=== PATIENT | female | born 1945 | race Caucasian/White ===

== ENCOUNTER → 2017-10-27 08:42 | Outpatient (CLI) | payer MEDICARE, SELFPAY ==
--- NOTE | 2017-10-27 08:54 | RAD_ITS ---
STUDY: X-RAY - RIGHT KNEE REASON FOR EXAM: Female, 71 years old. Pain. TECHNIQUE: 4 view(s) of the knee. COMPARISON: None. FINDINGS: Normal visualized distal femur. Normal visualized proximal tibia and fibula. Normal proximal tibiofibular articulation. Normal medial femorotibial compartment. Normal lateral femorotibial compartment. Normal patellofemoral articulation. The soft tissue structures are unremarkable. RAD/Knee 4 or More Views IMPRESSION: Normal x-ray examination of the knee. Electronically Signed: Ramses Heredia MD at 13:42 EDT Tel [phone], Service support ,
== END ==
PROVIDERS: Family Provider Family Medicine; PCP Family Medicine; Visit Provider Physician Assistant
DX: M25.561 Pain in right knee (principal)
CPT/HCPCS: 73564

== ENCOUNTER → 2018-05-05 07:47 | Outpatient (CLI) | payer MEDICARE, SELFPAY ==
[2018-05-05 10:32] LABS: Anion Gap 8 (5-15); BUN 12 mg/dL (7-18); Chloride 105 mmol/L (98-107); Cholesterol 276 mg/dL (200); Creatinine, Serum 0.92 mg/dL (0.55-1.02); EST Glomerular Filtration Rate 64 mL/min (>60); Est Glom Filt Rate - Afr Amer 77 mL/min (>60); Glucose 85 mg/dL (74-106); High Density Lipoprotein 81 mg/dL; Potassium 3.9 mmol/L (3.5-5.1); Sodium Level 142 mmol/L (136-145); Triglycerides 102 mg/dL; Very Low Density Lipoprotein 20 mg/dL (5-40)
== END ==
PROVIDERS: Family Provider Family Medicine; PCP Family Medicine; Referring Provider Family Medicine; Visit Provider Family Medicine
DX: I10 Essential (primary) hypertension (principal); E78.00 Pure hypercholesterolemia, unspecified
CPT/HCPCS: 36415; 80048; 80061

== ENCOUNTER → 2018-08-25 12:32 | Outpatient (CLI) | payer MEDICARE, OTHER, SELFPAY ==
--- NOTE | 2018-08-25 12:37 | BI_ITS ---
MAMMOGRAPHY - BILATERAL SCREENING REASON FOR EXAM: Female, 72 years old. Routine annual screening examination. PERTINENT HISTORY: Non-contributory. TECHNIQUE: Digital bilateral breast lexi (3D mammographic acquisition) in the CC and MLO projections. 2-D mediolateral oblique (MLO) and craniocaudad (CC) views of both breasts were obtained. CAD: Full Field Digital Mammography with Computer Added Detection was performed. COMPARISON: Comparison is made with prior study dated June 12, 2017 and May 19, 2016. FINDINGS: Breast Composition: There are scattered areas of fibroglandular density. There are no dominant masses or suspicious calcifications. No other significant abnormalities are identified. There has been no significant change since the prior study. BI/SCREENING MAMM (CAD), BILAT IMPRESSION: Stable bilateral screening mammogram. Yearly follow-up mammogram recommended. (A) ASSESSMENT CATEGORY: BIRADS Category 1: Negative. A letter regarding these results will be sent to the patient by the facility within 30 days. Approximately 10% of breast cancers are not detected by mammography. A normal mammogram should not delay biopsy of a clinically suspicious abnormality. [id number] Electronically Signed: Ramses Heredia, at 14:32 EDT , Service support ,
== END ==
PROVIDERS: Family Provider Family Medicine; PCP Family Medicine; Referring Provider Obstetrics & Gynecology; Visit Provider Obstetrics & Gynecology
DX: Z12.31 Encounter for screening mammogram for malignant neoplasm of breast (principal)
CPT/HCPCS: 77063; 77067

== ENCOUNTER → 2018-09-17 12:27 | Outpatient (CLI) | payer MEDICARE, OTHER, SELFPAY ==
--- NOTE | 2018-09-17 12:30 | MRI_ITS ---
STUDY: MRI RIGHT KNEE REASON FOR EXAM: Female, 72 years old. Right knee pain. Injury. Swelling. TECHNIQUE: Standardized fat and water weighted pulse sequences were obtained in all 3 orthogonal planes. COMPARISON: X-ray dated October 27, 2017. FINDINGS: Grade 2/3 cartilage loss of the patellofemoral articulation. Grade 4 cartilage loss of the lateral compartment. Grade 2/3 cartilage loss at the medial compartment predominating at the weightbearing portion. No acute fracture lines. No dislocation. No cortical destruction. Lateral meniscus bucket-handle type tear with displaced fragment at the intercondylar notch (sagittal images 5 through 8 series 4, coronal image 12 series 6 and axial image 17 series 2). Lateral meniscal degeneration with free edge fraying (sagittal image 15 series 4). Small volume joint effusion. Collapsed popliteal cyst. Mild pes anserinus bursitis. Mild soft tissue swelling. Normal medial collateral ligamentous complex (MCL). Normal distal semimembranosus, gracilis and semitendinosus tendons. Normal proximal tibiofibular articulation. Normal lateral collateral (fibular) ligament. Normal popliteus tendon. Normal biceps femoris tendon. Normal anterior cruciate ligament (ACL). Normal posterior cruciate ligament (PCL). Normal medial and lateral patellar retinaculum. Normal quadriceps tendon. Normal patellar tendon. Normal Hoffa's fat pad. MRI/Lower Ext Joint Only (Routine) IMPRESSION: Lateral meniscus bucket-handle tear with displaced intercondylar notch fragment Right knee tricompartmental osteoarthritis predominating laterally Mild pes anserinus bursitis Small joint effusion, collapsed popliteal cyst and mild soft tissue swelling Electronically Signed: Lambert Palafox DO at 21:50 EDT Tel , Service support ,
== END ==
PROVIDERS: Family Provider Family Medicine; PCP Family Medicine; Referring Provider Orthopaedic Surgery; Visit Provider Orthopaedic Surgery
DX: M25.561 Pain in right knee (principal); G89.29 Other chronic pain; M23.306 Other meniscus derangements, unspecified meniscus, right knee
CPT/HCPCS: 73721

== ENCOUNTER 2018-10-20 06:00 | Day surgery (SDC) | payer MEDICARE, OTHER, SELFPAY ==
--- NOTE | 2018-09-28 12:13 | HP_ITS ---
Intake Intake Visit Reasons: RIGHT KNEE Medications bisoprolol 5 mg-hydrochlorothiazide 6.25 mg tablet 1 tab PO ONCE tab 10/27/17 [History Confirmed 10/27/17] diclofenac sodium 75 mg tablet,delayed release 75 mg PO BID 10/27/17 [History Confirmed 10/27/17] levothyroxine 112 mcg tablet 112 mcg PO ONCE tab 10/27/17 [History Confirmed 10/27/17] PFSH Medical History Lee's disease (Chronic) Hypertension (Chronic) HPI RIGHT KNEE: Surgical H&P: Yes Details: Parts of this documentation were recorded by a scribe, this documentation accurately reflects the service provided and the decisions made by me, Any Bee, DO 09/21/18 3769. YUE MARIE is a 72 year old F here today for MRI f/u of the right knee. She continues to have knee pain with catching and locking. Denies numbness, tingling or other associated symptoms. No new complaints. pain 6/10 and worse with flexion. not taking narcotics for pain. denies constitutional symptoms. pain defined as sharp and locking at times and dull ache others. ROS Const Reports system reviewed and no additional complaints, except as docu Eyes Reports system reviewed and no additional complaints, except as docu ENT Reports system reviewed and no additional complaints, except as docu Card Reports system reviewed and no additional complaints, except as docu Resp Reports system reviewed and no additional complaints, except as docu GI Reports system reviewed and no additional complaints, except as docu Reports system reviewed and no additional complaints, except as docu Musc Reports as per HPI Skin/Breast Reports system reviewed and no additional complaints, except as docu Neuro Yes system reviewed and no additional complaints, except as docu Psych Reports system reviewed and no additional complaints, except as docu Endo Reports system reviewed and no additional complaints, except as docu Ortho Exam Right Knee Knee ROM: Yes ROM-Extension -20 to 0, Yes ROM-Flexion 0-140 Examination: Yes Lat jt line tenderness, Yes Pain with flexion Assessment & Plan Problems 1. Bucket-handle tear of lateral meniscus of right knee as current injury, subsequent encounter S83.580D Plan Personally reviewed the MRI and explained that she has a bucket handle lateral meniscus tear. Explained that surgery to removed the piece that is causing the locking will likely remove the sharp pain and catching, she does also have OA and the surgery may not aid in OA pain. Reviewed the pre-operative plans with the patient. Risks and benefits of the procedure were fully explained, including but not limited to infection, neurovascular injury, continued pain, arthritis, stiffness, need for further surgery, re-injury, DVT, PE, general risks of anesthesia, and loss of limb or life. The patient understands all the risks and does wish to proceed with written consent. Follow up two weeks post op or sooner if pain, swelling, numbness or associated symptoms, or concerns develop. All questions answered. Patient in agreement of plan. Coding Level of Care Code Off vis,est,level 4 Diagnoses Bucket-handle tear of lateral meniscus of right knee as current injury, subsequent encounter S83.251D ??Encounter type: subsequent encounter ??Meniscus of knee: lateral ??Tear current or old: current 09/28/18 1213 <Electronically signed by Any Bee DO> Date Any Bee DO I have re-examined the patient. There are no clinical changes since date of exam.
[2018-10-20] VITALS (8 sets, daily range): BP systolic 133–150; BP diastolic 67–79; PULSE 61–79; RESP 16–20; TEMP 36.5–36.6; O2SAT 93–100; BMI 25.4
[2018-10-20] MEDS: Cefazolin 2 GM in 0.9% Normal Saline 100 ML IV (07:23)
[2018-10-20] MEDS: Epinephrine (1 mg/ml) 1 MG/ML VIAL (07:40)
[2018-10-20] MEDS: Mupirocin Ointment 22gm Tube 1 APPLIC (08:30)
--- NOTE | 2018-10-20 08:36 | DCINST_ITS ---
Discharge Diet: No Restrictions - wbat right leg; elevate, ice and ankle pumps as discussed, follow up in 2 weeks with casey masterson, or sooner if issues arise, call with calf pain, fever, chills or other constitutional symptoms. Discharge Activity: May Not Drive May shower in (days): 1 Ice area for (Minutes): 20 - Every hour while awake. Weight Bearing Status: Weight bearing as tolerated Keep extremity elevated above heart level: Operative Extremity Call your doctor if your incision/area has: Continuous Slow Oozing, Sudden Increased Bleeding, Increased Pain/ Swelling, Increased Redness, Foul Smelling Discharge Call your doctor if you observe: Fever of 101 or Higher, Coldness, Increased Pain, Numbness or Tingling, Change in Color, Calf discomfort Allergies/Adverse Reactions: Allergies Sulfa (Sulfonamide Antibiotics) Allergy (Verified 10/13/18 10:03) Other SKIN ON FIRE BAND AID Allergy (Uncoded 10/13/18 10:04) Itching Medications to take at Discharge bisoprolol 5 mg-hydrochlorothiazide 6.25 mg tablet 1 tab PO ONCE tab 10/27/17 levothyroxine 112 mcg tablet 112 mcg PO ONCE tab 10/27/17 Calcium Citrate/Vitamin D3 [Citracal-Vit D3 200 mg-250 Tab] 2 each PO BID 10/13/18 traMADol [Ultram] 50 mg PO Q6H PRN PRN #30 tablet 10/20/18 The following prescriptions were given: traMADol [Ultram] 50 mg PO Q6H PRN PRN #30 tablet PRN Reason: Pain Primary Care Physician: Varghese Lowry MD [Primary Care Provider] - Test Results: Test results from this visit will be discussed in further detail at your follow- up appointment, if applicable. Please Follow Up With: Any Bee, - [phone]
--- NOTE | 2018-10-20 08:37 | PCM.OPRPT ---
Report of Operation Date of Procedure: 10/20/18 Pre-Operative Diagnosis: right knee lateral meniscus tear, osteoarthritis Post-Operative Diagnosis: same Surgery/Procedure Performed:: sark, plm, extensive synovectomy, pf chondropasty Type of Anesthesia:: General Anesthesiologist: Gregory Spears Estimated Blood Loss (mL): none Fluids Replaced: 600ml lr Description of Procedure: Preop note Patient is a 72-year-old female who is had locking of her right knee which is preventing her from doing her activities of daily living. Patient failed conservative treatment MRI confirms lateral meniscus tear as well as our osteoarthritis. Wrist benefits alternatives surgery discussed with patient. Risks include but not limited to blood loss, blood clot, infection, neurovascular, failure procedure,. Patient is aware would like proceed with right knee arthroscopy repair is indicated. Operative note Patient seen and examined preoperative holding area. Right knee was marked. Patient brought to the operating placed supine the operating table. Signing, anesthesia, antibiotics are Mr. The left right leg was prepped and draped in usual sterile fashion with a tourniquet around her upper thigh. We knocked marked out our bony landmarks as well as her port placement for anterior medial anterior lateral portal placement. Timeout was performed. We then elevated exsanguinated and Esmarch was in the tourniquet was raised her pressure of 250 torr. We then used an 11 blade to create her anterior lateral portal. We will begin our diagnostic arthroscopy. There was grade 2 fibrillated changes the patellofemoral joint worse in the trochlea the middle aspect as well as the distal patella. We then moved to the medial joint line where we created an anterior medial portal and direct visualization. We will then probed the medial meniscus was intact and stable to probing. There was some grade three 1-1/2 x 1 cm lesion on the medial femoral condyle. We then moved to the ACL and PCL which were present within the notch. We then moved to the lateral meniscus which was torn off of the posterior marked margin up to the mid body which was unstable. We resected this back to stable rim. It was a hypermobile remnant however by removing the entire meniscus she would have been left with nothing we gently debrided back and any unstable loose meniscus pieces we then reset inserted the probe to ensure that we had good remnant meniscus remaining which we did have it was a little loose again but the caveat being that removing everything we gave her absolutely no question. She had extensive synovitis the anterior medial anterolateral portals as well as into the recesses which was gently debrided back with a shaver. We gently resected back the unstable fibrillated changes on the trochlea. We irrigated the knee with copious muscle sterile saline. The tourniquet was deflated for total working time of 45 minutes. Portals were closed with interrupted nylon. Patient tolerated procedure well no comp occasions transferred recovery room in stable condition. Postop Arms he has prescriptions prescription Pictures to be given to family at postop visit next Call with increased pain numbness tingling or further issues arise Weight-bear as tolerated This note was generated with [employer] dictation software. It may contain incorrect words, spelling, and punctuation that were not noted in checking the note before signing.
[2018-10-20] MEDS: HYDROcodone Bitartrate/Apap 5/325 Tablet PO (10:03)
== END 2018-10-20 11:47 | disposition home or self-care (01) ==
LOC: SDC 06:01 → AC 06:02
PROVIDERS: Family Provider Family Medicine; PCP Family Medicine; Referring Provider Orthopaedic Surgery; Visit Provider Orthopaedic Surgery
PROC: (CPT 29870; principal; 2018-10-20 07:10)
DX: S83.251A Bucket-handle tear of lateral meniscus, current injury, right knee, initial encounter (principal); X58.XXXA Exposure to other specified factors, initial encounter; Y93.9 Activity, unspecified; Y92.9 Unspecified place or not applicable; E06.3 Autoimmune thyroiditis; I10 Essential (primary) hypertension; Z79.899 Other long term (current) drug therapy; M17.11 Unilateral primary osteoarthritis, right knee
CPT/HCPCS: 01400; 29876; 29881; J7120; J2405

== ENCOUNTER 2019-01-19 14:30 | Outpatient (RCR) | payer MEDICARE, OTHER, SELFPAY ==
[2018-11-02 15:16] VITALS: BMI 25.4
--- NOTE | 2018-11-03 16:03 | HP.PTEVAL ---
Patient's Visit Information YUE MARIE is a 72 year old F referred to Physical Therapy by Any Bee DO with a diagnosis of R knee menisectomy. Date of Evaluation: 11/03/18 Physical Therapist: KENNETH Richardson - Visit Plan Plan: 2X/ week for 4-6 weeks for R knee AROM, stretching, strengthening of the hip and knee, gait training, stairs, curb steps with HEP and modlaities as needed. - Subjective Findings: DOS 10-20-18 R knee menisectomy. She used a walker for 5 days or so. said that she has a little bit of arthritis and did some work on cartilage and meniscus. Pt has always done pilates for years and will continue to do upper body with her until the knee is better. SHe has no pain with sitting. Rest of the time she is 4-5/10/. She takes extra strength Tylenol every 4-6 hours. She has not tried stairs. Before surgery she could do stairs and keep her knee straight and so she is sure that the stairs are no better now. wants her to wear a hinge brace to shift the weight back where it belongs. - Pain R knee pain Pain Intensity (Out of 10): 0 Pain Intensity Range: 5 Comment: with medication - Objective Gait: Walks with decrease stance time onthe R LE and decreased heel and toe gait pattern. Girth Measurements: R Tib tub 38, 40.5, 43.5. L Tib Tub 38, 38.5, 41. AROM: R knee flexion 122 degrees 0 degrees extension. L knee flexion 132 degrees 0 degrees extension. Stairs: Up recip and down step 2 pattenr with 2 hand rails... big limp when descending stairs. Pt is able to heel and toe raise without UE support. - Goals Goal 1:: I HEP Goal Time Frame: 4-6 Weeks Goal 2:: Increase R knee AROM to 0-132 degrees knee flexion Goal Time Frame: 4-6 Weeks Goal 3:: Be able to go up and down stairs recip with no handrail and no antalgic gait. Goal Time Frame: 4-6 Weeks Goal 4:: Walk with a normal gait pattern. Goal Time Frame: 4-6 Weeks - Rehabilitation Potential Rehabilitation Potential: Good - Anticipated Interventions Patient/Client Instruction: Educate patient on: Condition, Plan of Care For the Purpose of:: To decrease pain, To decrease swelling/inflammation, To increase ROM, To improve nutrient delivery to tissue, To improve muscle performance and motor function, To improve ability to perform ADL's, To increase tolerance to activity/condition/position, To improve performance and independence with ADL's, To improve gait and locomotor functions, To improve health of tissue, To decrease soft tissue restriction, To increase flexibility/ROM Therapeutic Exercise to Include: Strength training, Gait and locomotor training, Active ROM For the Purpose of:: To decrease pain, To decrease swelling/inflammation, To increase ROM, To improve nutrient delivery to tissue, To improve muscle performance and motor function, To improve ability to perform ADL's, To increase tolerance to activity/condition/position, To improve gait and locomotor functions, To improve health of tissue, To decrease soft tissue restriction, To increase flexibility/ROM Functional Training to Include: Gait training Comments: stairs For the Purpose of:: To improve gait and locomotor functions IF ES: Yes Cryotherapy (ice pack, ice massage): Yes For the Purpose of:: To decrease pain, To decrease swelling/inflammation, To improve nutrient delivery to tissue Thank you for the opportunity to evaluate your patient. For Medicare and Medicare HMO plans, please review the plan of care and approve it. It will need to be FAXED BACK to us at [phone] for Medicare purposes. For Medicare only, by signing this I certify the plan of care. Please let me know if there are questions or concerns regarding this plan of care. Physician Signature: Date:
--- NOTE | 2018-12-17 13:37 | HP.PTREVAL ---
Any Bee, DO, It has been my pleasure to treat YUE MARIE over the last 10 visits for R knee menisectomy. Please see the progress note below for an update on the physical therapy plan of care! Subjective: Pt is feeling ok. If she overuses her knee or if she twists out on her knee. She jim has a little bit of swelling. She is able to push on her scar now without pain. Dr Boyd said no stairs until she tells her too. Pt would like to not worry if she is on uneven ground. She sees the Dr on JAN 13. Objective/Function: R knee AROM: 0-130. R knee flex 4+/5 and R knee ext 4/5, R hip abd 4+/5 Plan Plan: Work on shuttle slingle leg from less anle of 90 degrees. 1X/ week for 4 weeks for R knee AROM, stretching, strengthening of the hip and knee, gait training, stairs, curb steps with HEP and modlaities as needed. Goals Goal 1:: I HEP Goal Time Frame: 4-6 Weeks Goal Progress: Goal Met Goal 2:: Increase R knee AROM to 0-132 degrees knee flexion Goal Time Frame: 4-6 Weeks Goal Progress: Progressing Goal 3:: Be able to go up and down stairs recip with no handrail and no antalgic gait. Goal Time Frame: 4-6 Weeks Goal 4:: Walk with a normal gait pattern. Goal Time Frame: 4-6 Weeks Anticipated Interventions Patient/Client Instruction: Educate patient on: Condition, Plan of Care For the Purpose of:: To decrease pain, To decrease swelling/inflammation, To increase ROM, To improve nutrient delivery to tissue, To improve muscle performance and motor function, To improve ability to perform ADL's, To increase tolerance to activity/condition/position, To improve performance and independence with ADL's, To improve gait and locomotor functions, To improve health of tissue, To decrease soft tissue restriction, To increase flexibility/ROM Therapeutic Exercise to Include: Strength training, Gait and locomotor training, Active ROM For the Purpose of:: To decrease pain, To decrease swelling/inflammation, To increase ROM, To improve nutrient delivery to tissue, To improve muscle performance and motor function, To improve ability to perform ADL's, To increase tolerance to activity/condition/position, To improve gait and locomotor functions, To improve health of tissue, To decrease soft tissue restriction, To increase flexibility/ROM Functional Training to Include: Gait training Comments: stairs For the Purpose of:: To improve gait and locomotor functions IF ES: Yes Cryotherapy (ice pack, ice massage): Yes For the Purpose of:: To decrease pain, To decrease swelling/inflammation, To improve nutrient delivery to tissue Please do not hesitate to contact me at [phone] by phone or if you have questions or concerns regarding this new plan of care! Sincerely, Jasmyne Matias, MPT
--- NOTE | 2019-01-19 14:52 | HP.PTDCSUM ---
HP - PT D/C Summary It has been my pleasure to treat YUE MARIE under orders from Any Bee DO, for the diagnosis of R knee menisectomy for a total of 14 visit(s). Discharge Date: 01/19/19 Please see the following information for a summary of their discharge status. - Subjective Subjective: Pt feels that things aggrevated it... helped clean out basement on concrete floor and knee was sore for the rest of the evening and took an Alieve. released her and said to keep working on it. said there was still some swelling left. 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 She still trying to work on the mini steps.... she is still no going down stairs cause it hurts. SHe is using the arms on the stairs to offset her knee. - Pain R knee pain Pain Intensity (Out of 10): 0 - Overall Improvement % Improvement: 50 - Objective Objective/Function: Gait: walks with slightly decrease stance time on the R LE. Stairs: Pt is able to go up the stairs recip with a hand rail and descend recip but needs B UE support to lift herself up to take the pressure off the R knee when bending it. R knee AROM: 0-130 degrees - Goals Goal 1:: I HEP Goal Progress: Goal Met Goal 2:: Increase R knee AROM to 0-132 degrees knee flexion Goal Progress: Goal Met Goal 3:: Be able to go up and down stairs recip with no handrail and no antalgic gait. Goal Progress: Progressing Goal 4:: Walk with a normal gait pattern. Goal Progress: Progressing - Plan Plan: DC PT to [facility] and I home program. Pt will Call Dr Boyd if she feels that she needs more PT after trying itout on her own for awhile - D/C Information Discharge Comments: DC PT to I three dimensional art instructor and continue home PT If there are questions or concerns regarding this patient's physical therapy, please feel free to call me at [phone]. Thank you for the referral of this patient. Sincerely, Jasmyne Matias, MPT
== END 2019-01-19 19:00 | disposition home or self-care (01) ==
LOC: PT 14:30
PROVIDERS: Family Provider Family Medicine; PCP Family Medicine; Referring Provider Orthopaedic Surgery; Visit Provider Orthopaedic Surgery
DX: Z98.890 Other specified postprocedural states (principal)
CPT/HCPCS: 97110; 97161; 97530

== ENCOUNTER → 2019-04-07 13:39 | Outpatient (CLI) | payer MEDICARE, OTHER, SELFPAY ==
[2019-04-07 13:27] VITALS: BMI 25.4
--- NOTE | 2019-04-07 13:41 | RAD_ITS ---
STUDY: X-RAY - RIGHT KNEE REASON FOR EXAM: Female, 73 years old. Previous meniscal repair TECHNIQUE: 4 view(s) of the knee. COMPARISON: Prior study of 10/27/2017 FINDINGS: Normal visualized distal femur. Normal visualized proximal tibia and fibula. Normal proximal tibiofibular articulation. Normal medial femorotibial compartment. There is mild joint space narrowing with sclerosis of the lateral tibial plateau. Normal patellofemoral articulation. The soft tissue structures are unremarkable. RAD/Knee 4 or More Views IMPRESSION: Mild degenerative changes of the lateral compartment. Electronically Signed: Dima Logan MD at 20:39 EST , Service support ,
== END ==
PROVIDERS: Family Provider Family Medicine; PCP Family Medicine; Referring Provider Physician Assistant; Visit Provider Physician Assistant
DX: M25.561 Pain in right knee (principal)
CPT/HCPCS: 73564

== ENCOUNTER → 2019-06-14 07:44 | Outpatient (CLI) | payer MEDICARE, OTHER, SELFPAY ==
[2019-04-07 13:27] VITALS: BMI 25.4
[2019-06-14 10:53] LABS: Anion Gap 4 (5-15); BUN 10 mg/dL (7-18); BUN/Creat Ratio 11.7 RATIO (10-20); Calcium,Total 9.2 mg/dL (8.5-10.1); Chloride 105 mmol/L (98-107); Cholesterol 236 mg/dL (200); Creatinine, Serum 0.86 mg/dL (0.55-1.02); EST Glomerular Filtration Rate 69 mL/min (>60); Est Glom Filt Rate - Afr Amer 84 mL/min (>60); Glucose 91 mg/dL (74-106); High Density Lipoprotein 67 mg/dL; Potassium 3.7 mmol/L (3.5-5.1); Sodium Level 139 mmol/L (136-145); Thyroid Stim Hormone (TSH) 0.25 uIU/mL (0.358-3.74); Triglycerides 138 mg/dL; Very Low Density Lipoprotein 28 mg/dL (5-40)
== END ==
PROVIDERS: Family Provider Family Medicine; PCP Family Medicine; Referring Provider Family Medicine; Visit Provider Family Medicine
DX: E03.9 Hypothyroidism, unspecified (principal); E78.00 Pure hypercholesterolemia, unspecified; I10 Essential (primary) hypertension
CPT/HCPCS: 36415; 80048; 80061; 84443

== ENCOUNTER → 2020-02-24 | Outpatient (CLI) | payer MEDICARE, OTHER, SELFPAY ==
[2019-04-07 13:27] VITALS: BMI 25.4
--- NOTE | 2020-02-24 15:15 | CER_PTH ---
PATIENT: YUE MARIE [facility] U#:[id number] AGE/SX: 74/F ROOM: RE02/24/[address]: Dr. Ellen Smith MD : 1945 BED: DIS: 02/24/2020 SPEC #: [id number] RECD: 02/24/20 16:00 STATUS: KYMBERLY REEvonne #: [id number] MARTINEZ: 02/24/20 15:[address]: Ellen Charlton DEPT: SURGICAL PATHOLOGY RECD BY: Bruno Price ENTERED: 02/27/20 10:49 SP TYPE: CERV OTHR DR: Dr. Varghese Lowry MD Tissues: Uterine cervix, NOS Procedures: Surgery Specimen Level IV HEADER OPERATION: Polypectomy PRE-OP DIAGNOSIS: Incidental cervical polyp noted on exam TISSUE SUBMITTED: Cervical polyp MICROSCOPIC DIAGNOSIS Cervical polyp, biopsy: Fragments of benign endocervical polyp, inflamed. AM:minerva 02/28/20 MICROSCOPIC DESCRIPTION Slides are reviewed. GROSS DESCRIPTION Received in fixative is one container labeled with the patient's name and designated cervical polyp. The specimen consists of multiple irregular fragments of light gomez soft tissue that in aggregate measure 0.3 x 0.3 x 0.1 cm. The specimen is totally submitted in one cassette. / AM:minerva 02/27/20 TC:5 CPT: 23065
== END | disposition home or self-care (01) ==
LOC: LABSPEC 15:52
PROVIDERS: PCP Family Medicine; Visit Provider Obstetrics & Gynecology
DX: N84.1 Polyp of cervix uteri (principal)
CPT/HCPCS: 88305

== ENCOUNTER → 2020-06-14 | Outpatient (CLI) | payer MEDICARE, OTHER, SELFPAY ==
[2019-04-07 13:27] VITALS: BMI 25.4
== END | disposition home or self-care (01) ==
LOC: MFPLAB 14:01 → LABSPEC 14:01
PROVIDERS: PCP Family Medicine; Referring Provider Family Medicine; Visit Provider Family Medicine
DX: Z20.822 Contact with and (suspected) exposure to COVID-19 (principal)
CPT/HCPCS: 87635; U0005; U0003

== ENCOUNTER 2020-08-25 10:26 | Emergency (ER) | payer MEDICARE, OTHER, SELFPAY ==
[2019-04-07 13:27] VITALS: BMI 25.4
[2020-08-25 10:26] VITALS: BP 138/68; PULSE 81; RESP 18; TEMP 37.2; O2SAT 99; BMI 25.9
--- NOTE | 2020-08-25 10:53 | CT_ITS ---
2STUDY: CT BRAIN WITHOUT CONTRAST REASON FOR EXAM: Female, 74 years old. Injury/Pain RADIATION DOSAGE (If Supplied By Facility): CTDIvol = ( 44.99 ) mGy, DLP = ( 796.11 ) mGycm TECHNIQUE: Transaxial CT imaging of the brain was performed without administration of intravenous contrast material. Individualized dose optimization techniques were used for this CT. COMPARISON: No relevant priors. FINDINGS: Normal soft tissue structures. Normal calvarium. There is mild cerebral atrophy with widening of the extra-axial spaces and ventricular dilatation. There are mild areas of decreased attenuation within the white matter tracts of the supratentorial brain, consistent with mild microvascular disease changes. Normal basal ganglia and thalami. Normal brainstem. Normal cerebellum. There is no intracranial hemorrhage. There are no findings of an acute ischemic infarction. Normal visualized paranasal sinuses. CT/Brain/Head without Contrast IMPRESSION: No acute intracranial process. Electronically Signed: Minor Torrez MD at 11:46 EDT Tel , Service support ,
--- NOTE | 2020-08-25 10:53 | EKG12_ITS ---
Test Reason : Blood Pressure : / mmHG Vent. Rate : 079 BPM Atrial Rate : 079 BPM P-R Int : 208 ms QRS Dur : 082 ms QT Int : 384 ms P-R-T Axes : 056 059 037 degrees QTc Int : 440 ms Normal sinus rhythm Normal ECG Confirmed by ANSON CONNER, CHARANJIT ([id number]), staff editor RUSSEL MENON ([id number]) on 08/27/2020 1:41:06 PM Referred By: MARK Confirmed By:CHARANJIT GRIGGS MD
--- NOTE | 2020-08-25 10:54 | CT_ITS ---
2STUDY: CT CERVICAL SPINE WITHOUT CONTRAST REASON FOR EXAM: Female, 74 years old. Injury/Pain RADIATION DOSAGE (If Supplied By Facility): CTDIvol = ( 14.90 ) mGy, DLP = ( 313.44 ) mGycm TECHNIQUE: High resolution transaxial imaging was performed without contrast material. Sagittal and coronal images were reconstructed. Individualized dose optimization techniques were used for this CT. COMPARISON: None FINDINGS: Normal craniovertebral junction. Normal anterior atlantoaxial articulation. Normal odontoid process. Normal cervical lordosis. There is no evidence of acute compression fracture deformity. The posterior elements are intact. The alignment of the vertebral bodies are unremarkable. Degenerative changes in the apophyseal joints are noted at multiple levels. There is no evidence of bony central spinal canal stenosis at any level. Mild narrowing of the neural foramina is noted particularly at the levels of C4-C5 and on the right side at the level of C5-C6. Endplate spondylosis is seen at these levels. There is no prevertebral soft tissue swelling. The visualized lung apices demonstrate no evidence of pneumothorax. There are mild atherosclerotic calcifications of the carotid arteries. CT/Spine Cervical without Contras IMPRESSION: 1. Multilevel degenerative changes, as described above. 2. No demonstrated acute fracture or subluxation. Electronically Signed: Minor Torrez MD at 11:55 EDT Tel , Service support ,
--- NOTE | 2020-08-25 11:26 | ED.VISSUMM ---
- ER Visit Summary Date of Service: 08/25/20 Chief Complaint: Syncope History of Present Illness: The patient is a [address] Hamilton. Patient reports that she urinated stood up and pulled up her pants and had a syncopal episode. She denies any preceding lightheadedness, chest pain, palpitations, diaphoresis, abdominal pain, or nausea. She was not short of breath. She does remember falling. Patient reports that she hit the back of her head on the cabinet door under the sink. She complains of neck pain is 3-10 severity. She is not on anticoagulants. She states that she did feel weak for a couple minutes after this and had a difficult time standing up. That she is back to her baseline now. Patient denies any back, shoulder, wrist, or hip pain. Her tetanus is up-to-date. Review of systems: General: No fever, chills, cold sweats. Cardiovascular: No chest pain, palpitations. Respiratory: No cough, shortness of breath, dyspnea on exertion. Gastrointestinal: No abdominal pain, nausea, vomiting, diarrhea, melena, or hematochezia. Genitourinary: No dysuria, frequency, hematuria. Skin: No rash. Neuro: No numbness, weakness. Physical Examination: Vitals: Stable. Afebrile. Head: 6 cm laceration to the occipital area of her scalp on the left. No active bleeding. Neck: Mild diffuse tenderness palpation over her cervical spine. No point tenderness. Full ROM without difficulty. Back: No vertebral tenderness. General: A&O x 3. NAD. Cardiovascular exam: Regular rate and rhythm, no murmur, rub or gallop. Respiratory exam: Chest nontender. No crepitus. Clear to auscultation bilaterally. No wheezes or stridor. Abdominal exam: Soft, nontender, nondistended, normal bowel sounds. No pain in RUQ or LUQ specifically. No peritoneal signs. Extremity: Atraumatic. No pain with range of motion. Test Results: EKG is sinus at [address] changes. She does have T wave inversions in leads III and aVF. Normal intervals. No evidence of Brugada syndrome or HOCM. There is no old EKG for comparison. CBC shows platelets 135, seven neutrophils 89, one sets five. Chem-7 shows a sodium 135 and glucose 111. Troponin is negative. Clinical Impression(s) from Imaging Studies Brain CT 08/25/20 10:53 IMPRESSION: No acute intracranial process. Electronically Signed: Minor Torrez MD at 11:46 EDT Tel , Service support , Cervical Spine CT 08/25/20 10:54 IMPRESSION: 1. Multilevel degenerative changes, as described above. 2. No demonstrated acute fracture or subluxation. Electronically Signed: Minor Torrez MD at 11:55 EDT Tel , Service support , Chest X-Ray 08/25/20 11:47 IMPRESSION: No active pulmonary disease. Electronically Signed: Minor Torrez MD at 11:56 EDT Tel , Service support , Emergency Department Course and Treatment: Patient refused pain medications. She had her wound anesthetized and repaired. She tolerated this well. Orthostatic vital signs were negative. Patient had her wound anesthetized and repaired. She tolerated this well. Treatment Plan: Patient will be discharged with instructions to follow-up with her primary care physician within 3 to 5 days for further evaluation. She is instructed to have her anya removed in 10 days. Return to the emergency department for any worsening symptoms. Disposition: To home in improved and stable condition. Impression: One. Syncope, uncertain cause. 2. Cervical strain. 3. Scalp laceration, 6 cm, repaired. 4. Thrombocytopenia. Procedure note: Wound was cleansed with chlorhexidine soap. Anesthetized with 1% lidocaine without epinephrine. Copiously irrigated with normal saline. Wound was explored there is no foreign material present. It was closed with seven anya. The patient tolerated it well. This note was generated with [employer] software. It may contain incorrect words, spelling, and punctuation that were not noted in review of the chart prior to signing ED Disposition - Plan for ED Patient: Instructions: ED Fainting, Uncertain Cause, ED Laceration: All Closures Referrals: Varghese Hamilton MD [Primary Care Provider] - 3-5 Days Additional Instructions: Follow-up with your doctor in 10 days for staple removal.
[2020-08-25 11:43] LABS: Absolute Lymphocyte Count 0.34 X10^3/uL (0.83-4.51); Absolute Neutrophil Count 5.9 X10^3/uL (2.0-7.7); Basophil# 0.01 X10^3/uL; Basophil% 0.2 % (0-1); Eosinophil# 0.01 X10^3/uL; Eosinophils% 0.2 % (0-5); Hematocrit 45.8 % (37-47); Hemoglobin 14.8 g/dL (12.0-15.0); Lymphocyte # 0.34 X10^3/ul (4.0); Lymphocyte % 5.1 % (19-41); Mean Corp Hgb Conc 32.3 g/dL (32-36); Mean Corpuscular Hgb 32.4 pg (27.0-32.0); Mean Corpuscular Volume 100.2 fL (81-99); Mean Platelet Vol. 10.5 fl (6.2-12.0); Monocyte# 0.37 X10^3/uL; Monocyte% 5.6 % (0-10); NRBC Flagged by Analyzer 0 % (0-5); Neutrophil # 5.86 X10^3/uL (2.7-7.7); Neutrophil % 88.6 % (47-70); POSITIVE DIFFERENTIAL YES; Platelet Count 135 K/mm3 (150-450); RBC Distribution Width CV 12.2 % (11.6-14.6); RBC Distribution Width SD 45.3 fl (35.1-43.9); Red Blood Count 4.57 M/mm3 (4.2-5.4); White Blood Count 6.6 K/mm3 (4.4-11.0)
--- NOTE | 2020-08-25 11:47 | RAD_ITS ---
STUDY: X-RAY CHEST REASON FOR EXAM: Female, 74 years old. Syncope TECHNIQUE: Single AP portable view of the chest. COMPARISON: Prior comparison studies are not available for review at this time. FINDINGS: No focal infiltrate is seen. There is no demonstrated pleural abnormality. Normal size heart. Normal mediastinum and nash. Normal visualized pulmonary arteries. There is atherosclerotic tortuosity of the aortic arch and descending thoracic aorta. Mild degenerative changes in the thoracic spine and both shoulders. There is no demonstrated abnormality of the visualized soft tissue structures of the upper abdomen. RAD/Chest 1 View (Portable) IMPRESSION: No active pulmonary disease. Electronically Signed: Minor Torrez MD at 11:56 EDT Tel , Service support ,
[2020-08-25 11:48] LABS: Differential Indicated SCAN CRITERIA MET
[2020-08-25 12:16] LABS: Anion Gap 3 (5-15); BUN 11 mg/dL (7-18); BUN/Creat Ratio 12.1 RATIO (10-20); Calcium,Total 9.5 mg/dL (8.5-10.1); Chloride 103 mmol/L (98-107); Creatinine, Serum 0.91 mg/dL (0.55-1.02); Differential Comment SCANNED; EST Glomerular Filtration Rate 64 mL/min (>60); Est Glom Filt Rate - Afr Amer 78 mL/min (>60); Estimated Creatinine Clearance 49.54 ml/min; Glucose 111 mg/dL (74-106); Potassium 4.5 mmol/L (3.5-5.1); Sodium Level 135 mmol/L (136-145)
[2020-08-25 12:26] VITALS: BP 128/76; BP 142/66; BP 143/69; PULSE 82; PULSE 91; PULSE 96
[2020-08-25] MEDS: Lidocaine 1% (20 ml mdv) 20 ML Vial INFILT (12:30)
[2020-08-25 12:36] VITALS: BP 128/86; PULSE 81; RESP 16; O2SAT 98
== END 2020-08-25 12:36 | disposition home or self-care (01) ==
LOC: ED 11:26
PROVIDERS: Emergency Provider Emergency Medicine; PCP Family Medicine
DX: S01.01XA Laceration without foreign body of scalp, initial encounter (principal); S16.1XXA Strain of muscle, fascia and tendon at neck level, initial encounter; D69.6 Thrombocytopenia, unspecified; I10 Essential (primary) hypertension; Z79.899 Other long term (current) drug therapy; W18.30XA Fall on same level, unspecified, initial encounter; Z91.81 History of falling
CPT/HCPCS: 12002; 70450; 71045; 72125; 80048; 84484; 85025; 93005; 99285; A4216

== ENCOUNTER → 2020-10-30 12:09 | Outpatient (CLI) | payer MEDICARE, OTHER, SELFPAY ==
--- NOTE | 2020-10-30 12:14 | BI_ITS ---
MAMMOGRAPHY - BILATERAL SCREENING REASON FOR EXAM: Female, 74 years old. Routine annual screening examination. PERTINENT HISTORY: Non-contributory. TECHNIQUE: Digital bilateral breast swapnil (3D mammographic acquisition) in the CC and MLO projections. 2-D mediolateral oblique (MLO) and craniocaudad (CC) views of both breasts were obtained. CAD: Full Field Digital Mammography with Computer Added Detection was performed. COMPARISON: Comparison is made with prior study 08/25/2018 and 06/12/2017. FINDINGS: Breast Composition: The breasts are heterogeneously dense, which may obscure small masses. There is a 6.5 mm x 6 mm nodular density in the deep inferior medial aspect of the left breast. Correlation with gallstones is recommended. Stable small benign appearing bilateral axillary No other significant abnormalities are identified. BI/SCRN MAMM (CAD)W/SWAPNIL BILAT IMPRESSION: 6.5 mm x 6 mm nodular density in the deep inferior medial aspect of the left breast. Correlation with ultrasound is recommended. ASSESSMENT CATEGORY: BIRADS Category 0: Incomplete. Need additional imaging evaluation. A letter regarding these results will be sent to the patient by the facility within 30 days. Approximately 10% of breast cancers are not detected by mammography. A normal mammogram should not delay biopsy of a clinically suspicious abnormality. [id number] Electronically Signed: Ramses Heredia MD at 13:09 EDT , Service support ,
== END ==
PROVIDERS: PCP Family Medicine; Referring Provider Obstetrics & Gynecology; Visit Provider Obstetrics & Gynecology
DX: Z12.31 Encounter for screening mammogram for malignant neoplasm of breast (principal)
CPT/HCPCS: 77063; 77067

== ENCOUNTER → 2020-11-01 13:25 | Outpatient (CLI) | payer MEDICARE, OTHER, SELFPAY ==
--- NOTE | 2020-11-01 13:27 | US_ITS ---
STUDY: ULTRASOUND BREAST - LEFT REASON FOR EXAM: Female, 74 years old. Abnormal screening mammogram. TECHNIQUE: Axial and longitudinal images of the LEFT breast were performed with a high resolution ultrasound transducer. # OF IMAGES: 32 COMPARISON: Comparison is made with prior mammogram dated 10/30/2020. FINDINGS: LEFT Breast: The inferior medial aspect of the left breast was examined by ultrasound. No sonographic abnormality is seen. Additional mammographic views will be obtained. US/Breast Limited Unilateral IMPRESSION: Unremarkable sonographic evaluation of the inferior medial aspect of the left breast. Additional mammographic views will be obtained. ASSESSMENT CATEGORY: BIRADS Category 0: Incomplete. Need additional imaging evaluation. A letter regarding these results will be sent to the patient by the facility within 30 days. Electronically Signed: Ramses Heredia MD at 15:17 EDT , Service support ,
--- NOTE | 2020-11-01 14:21 | BI_ITS ---
MAMMOGRAPHY - UNILATERAL DIAGNOSTIC: LEFT BREAST REASON FOR EXAM: Female, 74 years old. Abnormal screening mammogram. PERTINENT HISTORY: Non-contributory. TECHNIQUE: Compression spot views of the left breast in the mediolateral oblique and craniocaudad projections were obtained. CAD: Full Field Digital Mammography with Computer Added Detection was performed. COMPARISON: Comparison is made with prior mammogram dated 10/30/2020 and prior sonogram done earlier today. FINDINGS: Breast Composition: The breasts are heterogeneously dense, which may obscure small masses. Persistent nodular density in the deep slightly inferior medial aspect of the left breast. Biopsy recommended. No other significant abnormalities are identified. BI/DIAG MAMM W/CAD, UNILAT IMPRESSION: Persistent nodular density in the deep slightly inferior medial aspect of the left breast as described. Biopsy is recommended. ASSESSMENT CATEGORY: BIRADS Category 4: Suspicious - Biopsy Should Be Considered. A letter regarding these results will be sent to the patient by the facility within 30 days. Approximately 10% of breast cancers are not detected by mammography. A normal mammogram should not delay biopsy of a clinically suspicious abnormality. Electronically Signed: Ramses Heredia MD at 15:13 EDT , Service support ,
== END ==
PROVIDERS: PCP Family Medicine; Referring Provider Obstetrics & Gynecology; Visit Provider Obstetrics & Gynecology
DX: R92.2 Inconclusive mammogram (principal)
CPT/HCPCS: 76642; 77065

== ENCOUNTER → 2020-11-29 12:34 | Outpatient (CLI) | payer MEDICARE, OTHER, SELFPAY ==
[2020-11-27 05:43] VITALS: BMI 25.7
--- NOTE | 2020-11-29 | BRBX_PTH ---
PATIENT: YUE MARIE LOC: [facility] U#:[id number] AGE/SX: 79/F ROOM: RE11/29/[address]: Dr. Azam Dumont MD : 1945 BED: DIS: SPEC #: [id number] RECD: 11/30/20 13:55 STATUS: KYMBERLY CAMRYN #: [id number] MARTINEZ: 11/29/20 00:[address]: Azam Dumont DEPT: SURGICAL PATHOLOGY RECD BY: Cortez Sampson ENTERED: 11/30/20 09:08 SP TYPE: BREAST BX OTHR DR: Dr. 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 4 millimeters Nuclear grade ? 1/3 Other findings ? ductal carcinoma in situ, solid and cribriform, nuclear grade 1. See comment. AM:minerva 12/04/2020 COMMENT Immunohistochemistry ([id number]) supports the above diagnosis. MICROSCOPIC DESCRIPTION Slides are reviewed. GROSS DESCRIPTION Received in fixative is one container labeled with the patient name and designated left breast. The specimen consists of multiple elongated fragments of gomez-yellow fibroadipose tissue that in aggregate measure 7.5 x 3 x 0.6 cm. The entire specimen is submitted in five cassettes. / SJ:minerva 11/30/20 TC:0 CPT: 61528 ADDENDUM ADDENDUM ADDENDUM ADDENDUM ADDENDUM ADDENDUM ADDENDUM ADDENDUM ADDENDUM ADDENDUM ADDENDUM ADDENDUM ADDENDUM 02/18/2021 10:31 ADDENDUM 02/18/2021 10:31 ADDENDUM 02/18/2021 10:31 ADDENDUM 02/18/2021 10:31 ADDENDUM 02/18/2021 10:31 This addendum is added to incorporate an outside pathology consultation report. The case was examined at [facility] (#[id number]) and the following diagnosis was rendered. Left breast, stereotactic core biopsy: -?Invasive ductal carcinoma, NOS type, provisional Chito grade 1, spanning at least 3 mm in this submitted material. - Atypical ductal hyperplasia. - Microcalcifications in invasive carcinoma. Please see complete above mentioned consultation report in EMR
--- NOTE | 2020-11-29 | IMM_PTH ---
PATIENT: YUE MARIE LOC: [facility] U#:[id number] AGE/SX: 79/F ROOM: RE11/29/[address]: Dr. Azam Dumont MD : 1945 BED: DIS: SPEC #: [id number] RECD: 12/04/20 11:09 STATUS: KYMBERLY CAMRYN #: [id number] MARTINEZ: 11/29/20 00:[address]: Azam Dumont DEPT: IMMUNOHISTOCHEMISTRY RECD BY: Lynda Trujillo ENTERED: 12/04/20 11:11 SP TYPE: IMMUNO OTHR DR: Dr. Varghese Hamilton MD Tissues: Left breast, NOS Procedures: CALPONIN-1 (add) CK5-6 (add) CK8 (add) MORILLO-2 (add) E-CAD (add) HER2 BRIAN (add) KI-67 (add) P53 (add) CT (add) P40 (add) ER (initial) PHYSICIAN & [address] [address] SPECIMEN INFORMATION: Tissue Source: Left breast Clinical Info: Left lower medial quadrant breast density Specimen Number: [id number] #4 CPT code: 80808, 55691 x7, 83249 x3 METHODOLOGY: Deparaffinized sections of prefer/formalin-fixed tissue or PAP/DQ stained slides are incubated with monoclonal/polyclonal antibodies/oligonucleotide probes. Localization is made via biotin free immunoperoxidase method. Appropriate controls are performed and reacted as expected. Results on target cell population are indicated in the following table: RESULTS: ANTIBODY / CLONE RESULT Block 4 P53 (DO-7) negative Ki-67 (30-9) positive, rare CK8 (21patwJ19) positive CK5-6 (D5 & 1684) negative Calponin-1 (KD235L) negative P40 (BC28) negative E-Cad (ECH-6) positive MORILLO-2 (SP21) positive, dim MORPHOMETRIC ANALYSIS ER (clone 6F11) >95%, strong CT (clone 16/1E2) 2%, weak Her-2Neu (clone CB11) 0-1+ The prognostic test for HER2 is performed on formalin-fixed paraffin embedded tissue. A 3+ (positive) staining pattern is defined as intense, homogeneous, complete, circumferential membranous staining in >10% of contiguous tumor cells. A similar weak (2+) staining pattern is interpreted as equivocal. RHONDA follow-up testing is recommended for all equivocal cases. Positivity/negativity for ER/CT is reported if > or < 1% of the tumor cells are immuno- reactive, respectively. The ASCO/CAP criteria is used for scoring. Reference: Journal of Clinical Oncology, 2013; 31:0624-3213 & 2010; 16:9457-9661. Duration of fixation: 79.5 Hrs; Sample Adequate: Yes. These assays have not been validated on decalcified tissues. Results should be interpreted with caution given the likelihood of false negativity on decalcified specimens. These tests were developed and their performance characteristics determined by [facility]. They may not have been cleared or approved by the U.S. Food and Drug Administration. The FDA has determined that such clearance or approval is not necessary. The above immunohistochemical/dualISH markers are ordered and reviewed by the Pathologist. INTERPRETATION: Left breast, stereotactic core biopsy: Invasive ductal carcinoma, nuclear grade 1/3. Positive for estrogen receptors (favorable prognostic indicator). Positive for progesterone receptors (favorable prognostic indicator). Negative for overexpression of GMG1jpg. AM:minerva 12/05/2020
--- NOTE | 2020-11-29 12:33 | HP.PCM_ITS ---
History and Physical Date of Admission: 11/29/20 Intake Visit Reasons: BIRADS 4 LEFT BREAST Chief Complaint: abn mammo left Physician Representative Required: No Is patient in pain?: No Allergies grass pollen Allergy (Mild, Verified 11/27/20 15:03) rhinitis, itching eyes Sulfa (Sulfonamide Antibiotics) Allergy (Verified 11/27/20 15:03) Other BAND AID Allergy (Uncoded 08/25/20 10:32) Itching Medications bisoprolol 5 mg-hydrochlorothiazide 6.25 mg tablet 1 tab PO ONCE tab 10/27/17 [History Confirmed 11/27/20] rykvwehg-tew-AI-lycopen-lutein 1 each PO DAILY 08/25/20 [History Confirmed 11/27/20] levothyroxine 125 mcg capsule 125 mcg PO DAILY 11/27/20 [History Confirmed 11/27/20] Is last menstrual period known: No Post menopausal: Yes Patient : No PFSH Medical History (Updated 11/27/20 @ 15:[address] 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 The patient is referred by Dr. Ellen Smith and Dr Varghese Hamilton and written copy of my surgical consult recommendations will return to them Mammography suggested deep medial inferior aspect of the left breast that there is a 6.5 x 6 mm nodular density which could not be confirmed on ultrasound. Her initial screening procedures were performed October 30, 2020. Ultrasound on the same day. I diagnostic left breast mammograms obtained on November 01, 2020 suggesting a persistent nodular density in the deep slightly inferior medial aspect of the left breast. BI-RADS Category 4. By report the patient had personal issues preventing her from presenting for a sooner appointment. On my review of the images this area of concern is quite posteriorly placed. It is deeply inferiorly placed in the breast. This will make a stereotactic approach difficult. August 25, 2020 she had emergency room visit because of syncope and collapse. She incurred a scalp laceration. Laboratory that time detected a hemoglobin of 14.8 and hematocrit of 45.8 and a platelet count of 135,000. She is not on any anticoagulants. 75-year-old female. G1, . Menarche was at age 13. First child born when she was 34. She did breast-feed. No history of previous breast biopsies. She has not been on any estrogen replacement therapy. Family history is negative for breast cancer. She has had no complaints. She cannot palpate any lesions herself. The item as noted above was simply found on screening examination. She otherwise enjoys good health. She has chronic hypertension and hypothyroidism. ROS General General: No weight change, appetite, fatigue, colon cancer, breast cancer or weakness HEENT HEENT: Yes eye surgery; No difficulty swallowing, eye injury, swollen glands or hoarseness Endo Endocrine: Yes thyroid disease; No diabetes mellitus, thyroid cancer, Hair loss, heat intolerance or cold intolerance Breast Breast: Yes abnormal mammogram; No left breast lump, right breast lump, nipple discharge, breast pain, abnormal US or breast enlargement Musc Musculoskeletal: No back problems, arthritis, rheumatoid arthritis, gout or joint pain Cardio Cardiovascular: Yes high blood pressure; No murmur, pacemaker, heart disease, atrial fibrillation, heart attack, heart stent, palpitations, shortness of breat with exertion or chest pain Psych Psychiatric: No depression, anxiety or hearing voices Resp Respiratory: No shortness of breath, No sleep apnea, No cough, No COPD, No asthma, No emphysema and No wheezing Gastro Gastrointestinal: No abdominal pain, No nausea or vomiting, No diarrhea, No constipation, No blood in stool, No acid reflux, Yes hemorrhoids, No ulcers, No gallbladder problem and No black,tarry stools Parminder Hematologic: No blood thinners, No blood disorders, No bleeding, No anemia and No blood clots Neuro Neurologic: No weakness Exam Chest Other: Bilateral breast: No focal masses, no nipple discharge, no nipple distortion, and no tenderness, no axillary or clavicular adenopathy COVID (Procedure Consent) Procedure Criteria Procedure Criteria: Yes Elective The surgeon/proceduralist and patient have discussed in detail the risk of exposure to and/or potential harm posed by the COVID-19 virus with having a surgery/procedure at this time versus the risk of delaying the surgery/procedure. It is not possible to know either the risk of delaying the surgery or procedure or chance of getting an infection with perfect accuracy, but a joint decision was made between the patient and the surgeon/proceduralist to proceed at this time with the scheduled surgery/procedure as indicated on the consent form. Assessment and Plan Assessment and Plan (1) Abnormal mammogram of left breast: Status: Acute Plan - Dr. Azam Dumont MD: I recommend to the patient a stereotactic needle core biopsy inferior medial left breast. I have described the technique, benefit, risk, alternatives. She has had an opportunity to ask and have questions answered. We will schedule and expedite her care. I very much appreciate the kind opportunity of assisting with her surgical management. Copy: Dr Varghese Hamilton and Dr. Ellen Dumont M.D., F.A.C.S. I have re-examined the patient. There are no clinical changes since date of exam.
--- NOTE | 2020-12-07 05:32 | PCM.OP.BLANK ---
Problems Associated Problem List Diagnoses (1) Abnormal mammogram of left breast: Operative Report Date of Procedure: 11/29/20 Timeout and informed consent was obtained. The patient was taken to the stereotactic unit. Her left breast was initially placed in the mediolateral oblique view. The density in question could not be clearly identified. She was subsequently placed in the craniocaudal view. The density in question was felt to be identified. Stereotactic images were obtained. Digital information was obtained on a single target site. A 8 gauge resolved needle was utilized. The breast was prepped with Betadine. 1% lidocaine was used as local anesthetic. A total of 10 cc was used. Local was instilled. A small stab incision was created. The resolved needle was advanced to prefire depth. Pre and post fire films were obtained. Multiple cores were obtained of the lesion. A marking clip was left in place. She tolerated the procedure well. She was released from device pressure was held for hemostasis Steri-Strip applied. Blood loss was minimal. The cords were immediately transferred to formalin for final pathology. No apparent complications. Azam Dumont M.D., F.A.C.S.
== END ==
PROVIDERS: PCP Family Medicine; Referring Provider Surgery; Visit Provider Surgery
DX: D05.12 Intraductal carcinoma in situ of left breast (principal); I10 Essential (primary) hypertension; E03.9 Hypothyroidism, unspecified; E06.3 Autoimmune thyroiditis; Z87.19 Personal history of other diseases of the digestive system; Z78.0 Asymptomatic menopausal state; Z79.899 Other long term (current) drug therapy
CPT/HCPCS: 19081; 88305; 88341; 88342; J7050

== ENCOUNTER 2020-12-17 08:10 | Day surgery (SDC) | payer MEDICARE, OTHER, SELFPAY ==
[2020-12-10 09:55] VITALS: BMI 25.4
--- NOTE | 2020-12-14 09:25 | EKG12_ITS ---
Test Reason : PREOP Blood Pressure : / mmHG Vent. Rate : 066 BPM Atrial Rate : 066 BPM P-R Int : 172 ms QRS Dur : 084 ms QT Int : 408 ms P-R-T Axes : 033 052 032 degrees QTc Int : 427 ms Normal sinus rhythm Normal ECG Confirmed by ARTEMIO CONNER, BAUTISTA ([id number]), book editor RUSSEL MENON ([id number]) on 12/17/2020 9:49:09 AM Referred By: Azam Dumont Confirmed By:JAYLAN ULLOA MD
--- NOTE | 2020-12-14 09:29 | RAD_ITS ---
STUDY: X-RAY CHEST REASON FOR EXAM: Female, 75 years old. preop breast cancer hypertension TECHNIQUE: Frontal and lateral views of the chest COMPARISON: 25 August 2020 FINDINGS: The lungs are clear and expanded. There is no demonstrated pleural abnormality. Normal size heart. Normal mediastinum and nash. Normal visualized pulmonary arteries. Normal visualized aortic arch and descending thoracic aorta. Normal visualized thoracic spine. Normal visualized ribs, clavicles, and shoulders. There is no demonstrated abnormality of the visualized soft tissue structures of the upper abdomen. RAD/Chest PA and Lateral IMPRESSION: Normal x-ray examination of the chest. Electronically Signed: Nicki Chong MD at 17:14 EDT Tel , Service support ,
[2020-12-14 09:44] LABS: Hematocrit 44.1 % (37-47); Hemoglobin 14.5 g/dL (12.0-15.0); Mean Corp Hgb Conc 32.9 g/dL (32-36); Mean Corpuscular Hgb 32.7 pg (27.0-32.0); Mean Corpuscular Volume 99.5 fL (81-99); Mean Platelet Vol. 10.3 fl (6.2-12.0); Platelet Count 183 K/mm3 (150-450); RBC Distribution Width CV 12.4 % (11.6-14.6); RBC Distribution Width SD 45.8 fl (35.1-43.9); Red Blood Count 4.43 M/mm3 (4.2-5.4); White Blood Count 5.1 K/mm3 (4.4-11.0)
[2020-12-14 10:10] LABS: ALB/GLOB Ratio 1.1 RATIO (0.9-2.4); AST(SGOT) 16 U/L (15-37); Alanine Aminotransfer ALT/SGPT 20 U/L (13-56); Albumin, Serum 3.8 g/dL (3.2-5.0); Alkaline Phosphatase 49 U/L (45-117); Anion Gap 6 (5-15); BUN 14 mg/dL (7-18); BUN/Creat Ratio 14.4 RATIO (10-20); Calcium,Total 9.2 mg/dL (8.5-10.1); Chloride 102 mmol/L (98-107); Creatinine, Serum 0.98 mg/dL (0.55-1.02); EST Glomerular Filtration Rate 59 mL/min (>60); Est Glom Filt Rate - Afr Amer 72 mL/min (>60); Globulin 3.4 g/dL (2.2-4.2); Glucose 108 mg/dL (74-106); Potassium 3.7 mmol/L (3.5-5.1); Protein, Total 7.2 g/dL (6.4-8.2); Sodium Level 140 mmol/L (136-145)
[2020-12-17] VITALS (8 sets, daily range): BP systolic 122–138; BP diastolic 60–76; PULSE 69–81; RESP 14–16; TEMP 36.4–36.8; O2SAT 95–99; BMI 25.4
--- NOTE | 2020-12-17 | IMM_PTH ---
PATIENT: YUE MARIE [place] [facility] [id number] AGE/SX: 75/F ROOM: RE12/17/[address]: Dr. Azam Dumont MD : 1945 BED: DIS: 12/17/2020 SPEC #: [id number] RECD: 12/20/20 13:01 STATUS: KYMBERLY REQ #: [id number] MARTINEZ: 12/17/20 00:[address]: Azam Dumont DEPT: IMMUNOHISTOCHEMISTRY RECD BY: Lynda Trujillo ENTERED: 12/20/20 13:06 SP TYPE: IMMUNO OTHR DR: Dr. Varghese Hamilton MD Tissues: A - Axillary lymph node, NOS B - Left breast, NOS C - Left breast, NOS Procedures: CK8 (initial) CALPONIN-1 (add) CK7 (add) CK8 (add) E-CAD (add) Pankeratin (initial) Pankeratin (add) P40 (add) PHYSICIAN & INSTITUTION [address] [address] SPECIMEN INFORMATION: Tissue Source: A ? Left axillary sentinel lymph nodes, B ? Left breast, C ? Lateral margin, left breast Clinical Info: Left breast cancer, lower inner quadrant, ER positive Specimen Number: [id number] A1-A3, B9, C2 & C9 CPT code: 53548 x3, 17195 x15 METHODOLOGY: Deparaffinized sections of prefer/formalin-fixed tissue or PAP/DQ stained slides are incubated with monoclonal/polyclonal antibodies/oligonucleotide probes. Localization is made via biotin free immunoperoxidase method. Appropriate controls are performed and reacted as expected. Results on target cell population are indicated in the following table: RESULTS: ANTIBODY / CLONE RESULT Block A1 AE1-3 (AE1/AE3/PCK26) negative CK7 (OV-TL12/30) negative Block A2 AE1-3 (AE1/AE3/PCK26) negative CK7 (OV-TL12/30) negative Block A3 AE1-3 (AE1/AE3/PCK26) negative CK7 (OV-TL12/30) negative Block B9 CK8 (21tqbwU04) positive E-Cad (ECH-6) negative P40 (BC28) positive Calponin-1 (UC129J) positive Block C2 CK8 (53xgnhB61) positive E-Cad (ECH-6) positive P40 (BC28) negative Calponin-1 (SB749R) negative Block C9 CK8 (68hucdF26) positive E-Cad (ECH-6) negative P40 (BC28) positive Calponin-1 (KS607R) positive These tests were developed and their performance characteristics determined by [facility]. They may not have been cleared or approved by the U.S. Food and Drug Administration. The FDA has determined that such clearance or approval is not necessary. The above immunohistochemical/dualISH markers are ordered and reviewed by the Pathologist. INTERPRETATION: A. Left axillary sentinel lymph nodes, biopsy: Two out of two lymph nodes, negative for metastatic carcinoma. B. Left breast, lumpectomy: Focal atypical lobular hyperplasia. C. Lateral margin, left breast, lumpectomy: Invasive ductal carcinoma (C2). Focal atypical lobular hyperplasia (C9). SJ:minerva 12/21/2020
--- NOTE | 2020-12-17 | AXNB_PTH ---
PATIENT: YUE MARIE [place]: [facility] [place][id number] AGE/SX: 75/F ROOM: RE12/17/[address]: Dr. Azam Dumont MD : 1945 BED: DIS: 12/17/2020 SPEC #: [id number] RECD: 12/17/20 12:26 STATUS: KYMBERLY REEvonne #: [id number] MARTINEZ: 12/17/20 00:[address]: Azam Dumont DEPT: SURGICAL PATHOLOGY RECD BY: Lynda Trujillo ENTERED: 12/17/20 13:33 SP TYPE: AX NODE BX OTHR DR: Dr. Varghese Hamilton MD Tissues: A - Axillary lymph node, NOS B - Left breast, NOS C - Left breast, NOS Procedures: Frozen Section (charge) Frozen Section [facility]) Surgery Specimen Level V HEADER OPERATION: Stereotactic wire localized left breast lumpectomy with axillary sentinel lymph nodes PRE-OP DIAGNOSIS: Left breast cancer, lower inner quadrant, ER positive TISSUE SUBMITTED: A - [place] lymph nodes, FS at 1222, B - Left breast lumpectomy, wire - anterior, short suture - superior, long suture - lateral, C - Lateral margin, left breast lumpectomy, white suture - inner edge of inferior resection margin, black suture - new margin of resection FROZEN SECTION DIAGNOSIS A. Left axillary sentinel lymph nodes, biopsy: Two out of two lymph nodes negative for carcinoma. AM:minerva 12/17/2020 MICROSCOPIC DIAGNOSIS A. Left axillary sentinel lymph nodes, biopsy: Two out of two lymph nodes negative for metastatic carcinoma. See comment. B. Left breast, lumpectomy with needle localization: Focal changes consistent with previous biopsy site. Focal ductal dilatation and intraductal hyperplasia without atypia. Focal atypical lobular hyperplasia. Negative for carcinoma. See comment. C. Left breast lumpectomy, lateral and inferior margins: Invasive ductal carcinoma. See cancer summary in the comment section. SJ:minerva 12/21/2020 COMMENT A. The lymph nodes are negative for metastatic carcinoma on multiple H & E levels and immunohisto-chemical stains for cytokeratins ([id number]). B. Immunohistochemistry ([id number]) supports the diagnosis of focal atypical lobular hyperplasia. C. BREAST CANCER SUMMARY Procedure - excision with needle localization Specimen laterality ? left Invasive tumor: Tumor site ? lower inner quadrant as per clinical information Tumor size ? 1 x 0.7 x 0.6 cm Histologic type ? invasive ductal carcinoma, not otherwise specified Histologic grade ([place] grade): Glandular/tubular differentiation score - 1 Nuclear pleomorphism score - 1 Mitotic count score - 1 Overall grade ? grade 1 (score of 3) Tumor focality ? single focus of invasive carcinoma Ductal Carcinoma In Situ ? present Negative for extensive intraductal component (EIC) Estimated size of DCIS ? DCIS comprise <5% of total tumor volume. Number of blocks with DCIS ? 1 Number of blocks examined ? 20 (including specimen B & C) Architectural pattern - cribriform Nuclear grade ? grade 1 (low) Necrosis ? identified Lobular carcinoma in situ ? not identified Tumor extension: Skin ? not present Nipple ? not applicable Skeletal muscle ? not present Margins: Invasive carcinoma margin ? the tumor is 1.2 cm away from the inferior margin (specimen C). Ductal carcinoma in situ margin - ductal carcinoma in situ is 1.6 cm away from the inferior margin (specimen C). Regional Lymph Nodes (specimen A): Number of lymph nodes examined ? 2 Number of sentinel lymph nodes examined - 2 Number of lymph nodes with macrometastases, micrometastases or isolated tumor cells ? 0 Treatment effect ? no known presurgical therapy. Lymphvascular invasion ? not identified Dermal lymphvascular invasion ? not applicable Additional Pathologic Findings ? intraductal hyperplasia without atypia. - Focal atypical lobular hyperplasia. Ancillary Studies: Previously performed on same tumor ([id number] / [id number]) ER: positive (>95%, strong) NE: positive (2%, weak) Dua0lot: negative (0-1+) Microcalcifications ? not identified Clinical History - Please make reference to previous specimen ([id number]) left breast, stereotactic core biopsy with diagnosis of invasive ductal carcinoma. Pathologic Stage: pT1b pN0(sn) pMx The above summary is in compliance with [employer] [place] (CAP) Cancer Protocols Checklist and [place] [employer] Committee on Cancer (AJCC), Staging Manual, 8th Ed. Case has been reviewed in consultation with Dr. Berman who concurs with the above diagnosis. IDC:AM MICROSCOPIC DESCRIPTION Slides are reviewed. GROSS DESCRIPTION A - Received fresh for frozen section consultation labeled with the patient's name is a specimen designated sentinel lymph node. The specimen consists of two irregular fragments of gomez-yellow fibrofatty tissue. The smaller fragment measures 3 x 2 x 1 cm and the larger fragment measures 5 x 3 x 1 cm. Dissection of the fragments reveal two ovoid nodules resembling lymph nodes and ranging in size from 1 to 3 cm in greatest dimension. The nodules are sectioned and totally submitted in three cassettes as follows: 1 - one nodule, bisected, 2 & 3 - one nodule, serially sectioned. / AM:minerva 12/17/20 B - Received fresh for intraoperative consultation labeled with the patient's name is a specimen designated left breast lumpectomy. The specimen consists of a piece of fibroadipose tissue with needle localization measuring 7 x 6 x 2 cm. The specimen is oriented as follows: wire - anterior, short suture - superior, long suture - lateral. The specimen is inked as follows: anterior - yellow, posterior - black, superior - blue, inferior - green, medial - red and lateral - orange. Serial sections reveal a biopsy cavity measuring 0.7 cm in greatest dimension. This is 0.3 cm away from the closest inferior margin. This information is conveyed to the surgeon intraoperatively. Sections of the rest of the specimen reveal gomez-yellow adipose cut surfaces with scant fibrous area. Operations Manager Station sections are submitted in ten cassettes as follows: 1 - perpendicular medial, lateral and anterior margins, 2 - perpendicular superior and posterior margins, 3-5 - biopsy cavity closest inferior margin, 6-10 - dental sales representative sections from the other area. Sections will be submitted after additional fixation. / SJ:minerva 12/18/20 C - Received in fixative is one container labeled with the patient's name and designated lateral margin left breast lumpectomy. The specimen consists of two pieces of fibroadipose tissue. One of the pieces show a white suture marking the inner edge of inferior resection margin and black suture, new margin. This piece measures 5 x 3.5 x 1.5 cm. This piece is inked as follows: the area marked white suture - blue ink and the rest of the specimen - black ink. Serial sections reveal a gomez-white tumor mass close to the white suture measuring 1 x 0.7 x 0.6 cm. The tumor is 1.5 cm away from new margin. The rest of the specimen reveals gomez-yellow adipose cut surfaces mixed with gomez-white fibrous area. The second piece does not show any suture and it measures 5.5 x 3 x 1.5 cm. As per surgeon, by verbal communication, this represents the lateral margin. One surface of this piece shows congested cut surfaces which is inked black and the rest of the specimen is inked blue. Sections reveal yellow adipose cut surfaces without any mass lesion. A focal area of hemorrhage is noted. Operations Manager Station sections are submitted in ten cassettes as follows: 1-6 - inferior margin (1-3 contains the entire tumor mass, 4-6 - dental sales representative sections adjacent and away from the tumor mass), 7-10 - lateral margin as identified by surgeon (7 & 8 - area of hemorrhage, 9 & 10 - dental sales representative sections from the other area). Sections will be submitted after additional fixation. / SUSY:minerva 12/17/20 TC:0 CPT: 95722 x3, 56686, 71388, 48748 ADDENDUM ADDENDUM ADDENDUM ADDENDUM ADDENDUM ADDENDUM ADDENDUM ADDENDUM 01/16/2021 10:04 ADDENDUM 02/18/2021 10:37 ADDENDUM 01/16/2021 10:04 ADDENDUM 01/16/2021 10:04 ADDENDUM 01/16/2021 10:04 ADDENDUM 01/16/2021 10:04 An order for Oncotype testing was received from Dr. Rader. This necessitated case review, block and slide selection by pathologist at [facility]. Breast Cancer Recurrence Score = 25 Results of the complete Oncotype testing ([facility] report) are viewable in EMR under: Reports - Pathology - Lab Pathology Report, Scanned. This addendum is added to incorporate an outside pathology consultation report. The case was examined at [facility] (#[id number]) and the following diagnosis was rendered. A. Left axillary sentinel lymph nodes: Two lymph nodes, negative for metastatic carcinoma. B. Left breast lumpectomy with needle localization: Atypical lobular hyperplasia. C. Left breast lumpectomy, lateral and inferior margins: Invasive ductal carcinoma, NOS type, [place] grade 1, measuring 13 mm in greatest dimension. Atypical ductal hyperplasia. Biopsy site changes. Please see complete above mentioned consultation report in EMR
[2020-12-17] MEDS: Lactated Ringers 1,000 ML 100 ML IV (08:58)
--- NOTE | 2020-12-17 09:00 | NM_ITS ---
PROCEDURE: NUCLEAR MEDICINE Injection Torrey Node - LEFT breast(s). REASON FOR EXAM: Female, 75 years old. Left breast cancer. TECHNIQUE: Torrey node localization using radionuclide methods of the LEFT breast(s) was performed following subcutaneous administration of 1.1 mCi of of sulfur colloid Tc-99m. FINDINGS: 1.1 mCi of technetium labeled sulfur colloid was injected subcutaneously in 4 equal aliquots at the biopsy site. NM/Lymph Node Injection Only IMPRESSION: 1.1 mCi of technetium labeled sulfur colloid was injected subcutaneously in 4 equal aliquots at the biopsy site. Electronically Signed: Ramses Heredia MD at 12:33 EDT , Service support ,
--- NOTE | 2020-12-17 10:30 | BI_ITS ---
SURGICAL BREAST SPECIMEN RADIOGRAPH CLINICAL: Document presence of tissue clip marker in biopsy specimen. FINDINGS: Specimen shows presence of tissue clip marker. Electronically Signed: Ramses Heredia MD at 13:31 EDT , Service support , BI/Breast Biopsy Specimen
--- NOTE | 2020-12-17 10:56 | PCM.HP.BLA ---
History and Physical Date of Admission: 12/17/20 Intake Visit Reasons: Discuss Pathology Chief Complaint: abn mammo left Allergies grass pollen Allergy (Mild, Verified 12/07/20 11:08) rhinitis, itching eyes Sulfa (Sulfonamide Antibiotics) Allergy (Verified 12/07/20 11:08) Other BAND AID Allergy (Uncoded 08/25/20 10:32) Itching Medications bisoprolol 5 mg-hydrochlorothiazide 6.25 mg tablet 1 tab PO ONCE tab 10/27/17 [History Confirmed 12/07/20] jzdmsdmp-mpv-WL-lycopen-lutein 1 each PO DAILY 08/25/20 [History Confirmed 12/07/20] levothyroxine 125 mcg capsule 125 mcg PO DAILY 11/27/20 [History Confirmed 12/07/20] [facility] Medical History (Updated 12/07/20 @ 11:[address] Azam Dumont MD) Abnormal mammogram of left breast Lee's disease Hemorrhoid Hypertension Hypothyroid Surgical History (Updated 11/27/20 @ 15:01 by Nahomy Lerma) History of arthroscopic knee surgery History of cataract extraction History of colonoscopy (~2012) Family History (Updated 11/27/20 @ 15:01 by Nahomy Lerma) Father Hypertension Heart disease Social History Smoking Status: Never smoker HPI HPI HPI: YUE MARIE, is a 75 F who presents to the office today for ongoing surgical follow-up regarding an abnormal left mammogram for which I performed a stereotactic needle core biopsy for her on November 29, 2020. Final pathology shows invasive ductal carcinoma. 4 mm in length. Nuclear grade 1 out of 3. 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 Nuclear grade 1. Estrogen receptors greater than 95% strong. Progesterone receptors 2% weak. HER-2/petar is 0-1+. INTERPRETATION:Left breast, stereotactic core biopsy:Invasive ductal carcinoma, nuclear grade 1/3.Positive for estrogen receptors (favorable prognostic indicator).Positive for progesterone receptors (favorable prognostic indicator).Negative for overexpression of DIR6olk It is of note that July 2020 the day after he received her second dose of COVID-19 vaccination she did have a syncopal spell. She did go to the ER. There were some sutures placed. No particular etiology to her episode. Is felt possibly related to the vaccination. She has not had any recurrence of the symptoms November 01, 2020 MAMMOGRAPHY - UNILATERAL DIAGNOSTIC: LEFT BREAST REASON FOR EXAM: Female, 74 years old. Abnormal screening mammogram. PERTINENT HISTORY: Non-contributory. TECHNIQUE: Compression spot views of the left breast in the mediolateral oblique and craniocaudad projections were obtained. CAD: Full Field Digital Mammography with Computer Added Detection was performed. COMPARISON: Comparison is made with prior mammogram dated 10/30/2020 and prior sonogram done earlier today. FINDINGS: Breast Composition: The breasts are heterogeneously dense, which may obscure small masses. Persistent nodular density in the deep slightly inferior medial aspect of the left breast. Biopsy recommended. No other significant abnormalities are identified. BI/DIAG MAMM W/CAD, UNILAT IMPRESSION: Persistent nodular density in the deep slightly inferior medial aspect of the left breast as described. Biopsy is recommended. ASSESSMENT CATEGORY: BIRADS Category 4: Suspicious - Biopsy Should Be Considered. A letter regarding these results will be sent to the patient by the facility within 30 days. Approximately 10% of breast cancers are not detected by mammography. A normal mammogram should not delay biopsy of a clinically suspicious abnormality. Electronically Signed: Ramses Heredia MD at 15:13 EDT , Service support , [facility] Imaging Services [address] [place], [place] [address] SCRN MAMM (CAD)W/SWAPNIL BRADFORD MR#: [id number] Acct: [id number] Name: YUE MARIE Rep #: [id number] : 1945 F 74 From: Ramses bello MD PCP: Dr. Varghese Hamilton MD Status: REG I Study: SCRN MAMM (CAD)W/SWAPNIL BILAT Date of Exam: 06/21 Exam# [id number] Ordering Dr: Ellen Charlton MD ADDENDUM by Dr. Ramses Heredia MD on 10/31/20 at 0826 ADDENDUM This is an addendum report for voice recognition error. Correlation with ultrasound is recommended for further evaluation. Electronically Signed: Ramses Heredia MD at 8:26 EDT , Service support , 10/31/20 08 Date cc: Dr. Varghese Hamilton MD; Dr. Ellen Smith MD * Signed ADDENDUM by Dr. Ramses Heredia MD on 10/31/20 at 0826 BI/SCRN MAMM (CAD)W/SWAPNIL BILAT 10/31/20 0833 Date cc: Dr. Varghese Hamilton MD; Dr. Ellen Smith MD * Signed MAMMOGRAPHY - BILATERAL SCREENING REASON FOR EXAM: Female, 74 years old. Routine annual screening examination. PERTINENT HISTORY: Non-contributory. TECHNIQUE: Digital bilateral breast swapnil (3D mammographic acquisition) in the CC and MLO projections. 2-D mediolateral oblique (MLO) and craniocaudad (CC) views of both breasts were obtained. CAD: Full Field Digital Mammography with Computer Added Detection was performed. COMPARISON: Comparison is made with prior study 08/25/2018 and 06/12/2017. FINDINGS: Breast Composition: The breasts are heterogeneously dense, which may obscure small masses. There is a 6.5 mm x 6 mm nodular density in the deep inferior medial aspect of the left breast. Correlation with gallstones is recommended. Stable small benign appearing bilateral axillary No other significant abnormalities are identified. BI/SCRN MAMM (CAD)W/SWAPNIL BILAT IMPRESSION: 6.5 mm x 6 mm nodular density in the deep inferior medial aspect of the left breast. Correlation with ultrasound is recommended. ASSESSMENT CATEGORY: BIRADS Category 0: Incomplete. Need additional imaging evaluation. A letter regarding these results will be sent to the patient by the facility within 30 days. Approximately 10% of breast cancers are not detected by mammography. A normal mammogram should not delay biopsy of a clinically suspicious abnormality. [id number] Electronically Signed: Ramses Heredia MD at 13:09 EDT , Service support , My previous notes are as follows History and Physical Date of Admission: 11/29/20 Intake Visit Reasons: BIRADS 4 LEFT BREAST Chief Complaint: abn mammo left Handle Turner Required: No Is patient in pain?: No Allergies grass pollen Allergy (Mild, Verified 11/27/20 15:03) rhinitis, itching eyes Sulfa (Sulfonamide Antibiotics) Allergy (Verified 11/27/20 15:03) Other BAND AID Allergy (Uncoded 08/25/20 10:32) Itching Medications bisoprolol 5 mg-hydrochlorothiazide 6.25 mg tablet 1 tab PO ONCE tab 10/27/17 [History Confirmed 11/27/20] qjzucrgo-rbz-RU-lycopen-lutein 1 each PO DAILY 08/25/20 [History Confirmed 11/27/20] levothyroxine 125 mcg capsule 125 mcg PO DAILY 11/27/20 [History Confirmed 11/27/20] Is last menstrual period known: No Post menopausal: Yes Patient : No PFSH Medical History (Updated 11/27/20 @ 15:[address] 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 The patient is referred by Dr. Ellen Smith and Dr Varghese Hamilton and written copy of my surgical consult recommendations will return to them Mammography suggested deep medial inferior aspect of the left breast that there is a 6.5 x 6 mm nodular density which could not be confirmed on ultrasound. Her initial screening procedures were performed October 30, 2020. Ultrasound on the same day. I diagnostic left breast mammograms obtained on November 01, 2020 suggesting a persistent nodular density in the deep slightly inferior medial aspect of the left breast. BI-RADS Category 4. By report the patient had personal issues preventing her from presenting for a sooner appointment. On my review of the images this area of concern is quite posteriorly placed. It is deeply inferiorly placed in the breast. This will make a stereotactic approach difficult. August 25, 2020 she had emergency room visit because of syncope and collapse. She incurred a scalp laceration. Laboratory that time detected a hemoglobin of 14.8 and hematocrit of 45.8 and a platelet count of 135,000. She is not on any anticoagulants. 75-year-old female. G1, . Menarche was at age 13. First child born when she was 34. She did breast-feed. No history of previous breast biopsies. She has not been on any estrogen replacement therapy. Family history is negative for breast cancer. She has had no complaints. She cannot palpate any lesions herself. The item as noted above was simply found on screening examination. She otherwise enjoys good health. She has chronic hypertension and hypothyroidism. ROS General General: No weight change, appetite, fatigue, colon cancer, breast cancer or weakness HEENT HEENT: Yes eye surgery; No difficulty swallowing, eye injury, swollen glands or hoarseness Endo Endocrine: Yes thyroid disease; No diabetes mellitus, thyroid cancer, Hair loss, heat intolerance or cold intolerance Breast Breast: Yes abnormal mammogram; No left breast lump, right breast lump, nipple discharge, breast pain, abnormal US or breast enlargement Musc Musculoskeletal: No back problems, arthritis, rheumatoid arthritis, gout or joint pain Cardio Cardiovascular: Yes high blood pressure; No murmur, pacemaker, heart disease, atrial fibrillation, heart attack, heart stent, palpitations, shortness of breat with exertion or chest pain Psych Psychiatric: No depression, anxiety or hearing voices Resp Respiratory: No shortness of breath, No sleep apnea, No cough, No COPD, No asthma, No emphysema and No wheezing Gastro Gastrointestinal: No abdominal pain, No nausea or vomiting, No diarrhea, No constipation, No blood in stool, No acid reflux, Yes hemorrhoids, No ulcers, No gallbladder problem and No black,tarry stools Parminder Hematologic: No blood thinners, No blood disorders, No bleeding, No anemia and No blood clots Neuro Neurologic: No weakness Exam Chest Other: Bilateral breast: No focal masses, no nipple discharge, no nipple distortion, and no tenderness, no axillary or clavicular adenopathy COVID (Procedure Consent) Procedure Criteria Procedure Criteria: Yes Elective The surgeon/proceduralist and patient have discussed in detail the risk of exposure to and/or potential harm posed by the COVID-19 virus with having a surgery/procedure at this time versus the risk of delaying the surgery/procedure. It is not possible to know either the risk of delaying the surgery or procedure or chance of getting an infection with perfect accuracy, but a joint decision was made between the patient and the surgeon/proceduralist to proceed at this time with the scheduled surgery/procedure as indicated on the consent form. Assessment and Plan Assessment and Plan (1) Abnormal mammogram of left breast: Status: Acute Plan - Dr. Azam Dumont MD: I recommend to the patient a stereotactic needle core biopsy inferior medial left breast. I have described the technique, benefit, risk, alternatives. She has had an opportunity to ask and have questions answered. We will schedule and expedite her care. I very much appreciate the kind opportunity of assisting with her surgical management. Copy: Dr Varghese Hamilton and Dr. Ellen Dumont M.D., F.A.C.S. Exam Chest Other: Left breast upper inner stereotactic incision just slightly red there is very minimal ecchymosis. COVID (Procedure Consent) Procedure Criteria Procedure Criteria: Yes Elective The surgeon/proceduralist and patient have discussed in detail the risk of exposure to and/or potential harm posed by the COVID-19 virus with having a surgery/procedure at this time versus the risk of delaying the surgery/procedure. It is not possible to know either the risk of delaying the surgery or procedure or chance of getting an infection with perfect accuracy, but a joint decision was made between the patient and the surgeon/proceduralist to proceed at this time with the scheduled surgery/procedure as indicated on the consent form. Assessment and Plan Assessment and Plan (1) Breast cancer, left: Status: Acute Qualifiers: Breast location: lower inner quadrant of breast Estrogen receptor status: positive Patient sex: female Qualified Code(s): C50.312 - Malignant neoplasm of lower-inner quadrant of left female breast; Z17.0 - Estrogen receptor positive status [ER+] Plan Details Additional Comments: Patient with invasive ductal carcinoma lower inner left breast. I propose for her a stereotactic wire localization medial lateral view with subsequent nuclear tracer blue dye left axillary sentinel lymph node biopsy and wire localized left breast lumpectomy. I have compared and contrasted that with a left mastectomy with sentinel node biopsy. She has had an opportunity ask and have questions answered. She is aware that medical oncology and radiation oncology consultation will be recommended. The patient's primary care physician is Dr Varghese Hamilton. At this point they would tentatively like to schedule the procedure. They are contemplating whether they would like to take advantage of a second opinion. I have offered them hematology consultation preoperatively as well. I very much appreciate the kind opportunity of assisting with her surgical care Copy: Dr Varghese Dumont M.D., F.A.C.S. Coding Level of Care Code Off vis,est,level 3 Diagnoses Breast cancer, left C50.312; Z17.0 Breast location: lower inner quadrant of breast Estrogen receptor status: positive Patient sex: female I have re-examined the patient. There are no clinical changes since date of exam.
--- NOTE | 2020-12-17 11:37 | PCM.OPRPT ---
Problems Associated Problem List Diagnoses (1) Breast cancer, left: Report of Operation Date of Procedure: 12/17/20 Pre-Operative Diagnosis: Invasive ductal carcinoma lower inner left breast Post-Operative Diagnosis: Same Surgery/Procedure Performed:: Stereotactic wire localization lower inner left breast with wire localized left breast lumpectomy and nuclear tracer and blue dye left axillary sentinel lymph node biopsy Description of Surgical Findings:: Timeout and informed consent was obtained. 75-year-old female was taken to the stereotactic room. She was placed prone on the table. The left breast was placed in medial lateral view. A marking clip in question was eventually identified. Stereotactic images were obtained. Digital information was obtained on a single target site. The breast was prepped with Betadine. 1% lidocaine was used as a local anesthetic. A total of 1 cc was used. A 20-gauge Kopan's needle was advanced to a depth +15 mm. On fast view demonstrated good localization. Sterile dressings were applied. The patient was subsequently taken the operating for definitive surgery. The patient was taken to the operating room placed supine on the table and underwent general endotracheal intubation anesthesia. The left breast was sterilely prepped and draped. Isosulfan blue dye 2 cc was injected retroareolar. Massage was performed for at least 3 minutes. The left arm was carefully wrapped with soft roll and been placed at right angles of the table prior to the prepping. An oblique incision was made in the left axilla. Sharp and blunt dissection was used to identify the blue dye tracking. There actually was 2 separate evidence of tracking. One was slightly more lateral into the slightly deeper axilla and one was more medially placed. I used hemoclips to secure the lymphatic channels and dissected free the 2 lymph nodes. I then performed nuclear investigation found a rate of 40 reinserted the neoprobe and did not detect any residual significant activity. The cavity was inspected by the neoprobe and by visual inspection and by palpation. There was no residual blue dye tracking or nuclear tracer or palpable nodes remaining. The 2 lymph nodes were sent for pathology. It is of note that during the procedure frozen section suggested that both were negative. I then used the wire to make a transverse incision the medial left breast sharp dissection carried down through subcu tissue dissection performed completely remove the tissue including the tip of the wire. 4 hemoclips were placed to babs the edges. Specimen mammogram showed the wire and what I thought was a palpable lesion but did not show the marking clip. Inspection of the cavity revealed some previous biopsy cavity stuff inferiorly. I found that after doing further resection in the retroareolar area which I labeled is laterally as I was in the medial aspect of the breast. I reexcised the medial tissue and submitted that. I reexcised the inferior tissue and at the part of the biopsy cavity closest to the original tumor I placed a white Vicryl suture and at the new margin inferior further's from the tumor I placed a silk suture. Hemostasis was obtained of with electrocautery. Hemostasis was intact. I placed Surgicel at both the axillary sentinel lymph node dissection site and at the lumpectomy site. Both wounds were anesthetized with 0.5% Marcaine a total of 30 cc was used. Both wounds were closed with deep interrupted sutures of 3-0 Vicryl. Skin edges approximated a running septic or 4 Monocryl. Steri-Strips Telfa OpSite bulky dry dressings applied. Sponge and instrument and needle counts were reported to the surgeon to be correct. Specimen left axillary sentinel lymph nodes x2. Left breast lumpectomy. Additional left lateral/retroareolar tissue. Additional left inferior breast tissue. Drains none. Blood loss minimal The patient was taken to the recovery area in satisfactory addition without apparent complication Azam Dumont M.D., F.A.C.S. Surgeon: Azam Dumont Type of Anesthesia: General and Local Anesthesiologist: Reese White
--- NOTE | 2020-12-17 11:41 | PCM.DC ---
Discharge Instructions Diet Discharge Diet: No restrictions Activity Discharge Activity: May Not Drive (for 2-3 days or while taking narcotic pain meds.) May shower in (days): 1 Lifting Restrictions: 10 pounds for 1 week. Dressing / Incision Call your doctor if your incision/area has: Continuous Slow Oozing and Sudden Increased Bleeding Call your doctor if you observe: Fever of 101 or Higher Suture Line Care: Avoid Pulling/Pushing and Avoid Pinching/Bending Remove Dressing in: 1 day Additional Dressing/Incision Instructions:: Remove bulky dressing tomorrow. May leave any opsite dressing for 3-4 days. Keep dressing in place until your follow-up appointment. Follow Up Care Test Results: Test results from this visit will be discussed in further detail at your follow-up appointment, if applicable. Discharge Plan Admission Attending Provider: Azam Dumont Primary Care Provider: Varghese Hamilton Discharge Orders/Prescriptions Prescriptions: No Action bisoprolol-hydrochlorothiazide [Ziac] 5-6.25 mg tablet 1 tab PO QHS RF: 0 levothyroxine 125 mcg capsule 125 mcg PO DAILY RF: 0 ibbzqogj-enr-HC-lycopen-lutein 1 EACH tablet 1 each PO DAILY RF: 0 calcium citrate-vitamin D3 [Calcium Citrate + D] 315 mg-5 mcg (200 unit) Tablet 1 tab PO DAILY RF: 0
[2020-12-17] MEDS: Isosulfan Blue 1% 5 ML Vial (12:00)
[2020-12-17] MEDS: Bupivacaine Mpf 0.5% 30 ML VIAL (13:16)
== END 2020-12-17 16:32 ==
LOC: SDC 08:10 → AC 08:11
PROVIDERS: PCP Family Medicine; Referring Provider Surgery; Visit Provider Surgery
PROC: (CPT 19301; principal; 2020-12-17 11:15)
DX: C50.312 Malignant neoplasm of lower-inner quadrant of left female breast (principal); Z17.0 Estrogen receptor positive status [ER+]; R59.0 Localized enlarged lymph nodes; I10 Essential (primary) hypertension; E03.9 Hypothyroidism, unspecified; M19.90 Unspecified osteoarthritis, unspecified site; Z78.0 Asymptomatic menopausal state; Z79.899 Other long term (current) drug therapy
CPT/HCPCS: 00400; 19301; 38525; 19281; 36415; 38792; 71046; 76098; 80053; 85027; 88305; 88307; 88331; 88332; 88341; 88342; 93005; A9541; J7120; J2405; Q9968

== ENCOUNTER → 2021-01-04 14:46 | Outpatient (CLI) | payer MEDICARE, OTHER, SELFPAY ==
[2020-12-27 13:38] VITALS: BMI 25.6
[2021-01-03 10:05] VITALS: BMI 26.3
--- NOTE | 2021-01-04 14:49 | CT_ITS ---
EXAM: CT CHEST, ABDOMEN AND PELVIS WITH INTRAVENOUS CONTRAST : 1945 CLINICAL INDICATION: staging breast cancer TECHNIQUE: Helically acquired images were obtained of the chest, abdomen and pelvis with intravenous contrast. This CT exam was performed using one or more of the following dose reduction techniques: automated exposure control, adjustment of the mA and/or kV according to patient size, and/or use of iterative reconstruction technique. This report was created using [employer] report generation technology. CONTRAST: Oral Tamp;amp; IV Readi-CAT Tamp;amp; 100mL Isovue-300 COMPARISON: None. FINDINGS: CHEST: LUNGS AND PLEURAL SPACES: There is minimal scarring in the lung bases. No mass. No pleural effusion or thickening. No pneumothorax. HEART: Unremarkable. Heart size is normal. No pericardial effusion. MEDIASTINUM: Unremarkable. No mediastinal or hilar adenopathy. Esophagus is unremarkable. No hiatal hernia. THYROID: Unremarkable. No thyroid lesions. ABDOMEN: LIVER: Unremarkable. Homogeneous. No focal mass. GALLBLADDER AND BILE DUCTS: Unremarkable. No calcified gallstones. No gallbladder distention or wall edema. No intra- or extrahepatic biliary ductal dilation. PANCREAS: Unremarkable. No focal cystic or solid mass. SPLEEN: Unremarkable. Normal size without focal cystic or solid mass. ADRENALS: Unremarkable. No nodules. KIDNEYS AND URETERS: Unremarkable. Normal renal size and position. No hydronephrosis. STOMACH AND BOWEL: Unremarkable. No stomach or bowel distention. No focal inflammatory change. PELVIS: APPENDIX: No evidence of acute appendicitis. BLADDER: Unremarkable. REPRODUCTIVE: Unremarkable as visualized. No mass. CHEST, ABDOMEN and PELVIS: INTRAPERITONEAL SPACE: Unremarkable. No ascites or other fluid collection. No free air. BONES/JOINTS: Unremarkable. No suspicious lytic or blastic abnormality. SOFT TISSUES: There is a 3.0 x 2.0 cm soft tissue density in the left axilla. This may possibly represent a seroma from previous surgery however a mass cannot be excluded. No discrete abdominal or pelvic wall hernia. VASCULATURE: Unremarkable. Aorta is non-dilated. No aortic dissection. No obvious central pulmonary embolism although this study was not performed with the pulmonary embolism protocol. LYMPH NODES: There is an enlarged lymph node in the aorticopulmonary window and measures 1.[address]/CT Chest, Abd, Pel w/Contrast IMPRESSION: 1. Low-density lesion in the left axilla which may represent a postoperative seroma. The possibility of a mass cannot be excluded. 2. Enlarged lymph nodes seen in the aorticopulmonary window which may be reactive or inflammatory. The possibility of metastatic disease cannot be excluded. 3. No other acute abnormalities in the chest, abdomen and pelvis. Individualized dose optimization techniques were used for this CT. at 1802 Reported and signed by: Tor Tanner MD Electronically Signed: Tor Tanner MD at 18:01 EDT Tel , Service support ,
== END ==
PROVIDERS: PCP Family Medicine; Referring Provider Internal Medicine Medical Oncology; Visit Provider Internal Medicine Medical Oncology
DX: C50.912 Malignant neoplasm of unspecified site of left female breast (principal)
CPT/HCPCS: 71260; 74177; Q9967

== ENCOUNTER → 2021-01-09 09:57 | Outpatient (CLI) | payer MEDICARE, OTHER, SELFPAY ==
[2020-12-27 13:38] VITALS: BMI 25.6
[2021-01-03 10:05] VITALS: BMI 26.3
--- NOTE | 2021-01-09 09:59 | NM_ITS ---
CLINICAL: Female, 75 years old. staging breast cancer -- New Dx -- Lumpectomy left side in November -- No patient complaints except some some arthritis pain right knee WHOLE BODY NUCLEAR BONE SCAN TECHNIQUE: Following the IV administration of mCi of Tc MDP, whole body bone imaging was performed with a gamma camera following a three hour delay. COMPARISON STUDIES : NM - None. CR - Not available for review at this time. CT - Not available for review at this time. MR - Not available for review at this time. US - Not available for review at this time. FINDINGS: There is a normal concentration of radiopharmaceutical throughout the axial and appendicular skeletal system without either a focal decrease or increase in uptake. NM/Bone Scan Whole Body IMPRESSION: Normal whole body nuclear bone scan. Electronically Signed: Hunter Mahan MD at 14:46 EDT Tel , Service support ,
== END ==
PROVIDERS: PCP Family Medicine; Referring Provider Internal Medicine Medical Oncology; Visit Provider Internal Medicine Medical Oncology
DX: C50.912 Malignant neoplasm of unspecified site of left female breast (principal)
CPT/HCPCS: 78306; A9503

== ENCOUNTER → 2021-01-17 08:52 | Outpatient (CLI) | payer MEDICARE, OTHER, SELFPAY ==
[2021-01-03 10:05] VITALS: BMI 26.3
--- NOTE | 2021-01-17 09:08 | BD_ITS ---
STUDY: DUAL ENERGY X-RAY ABSORPTIOMETRY / DXA REASON FOR EXAM: Female, 75 years old. SCREENING TECHNIQUE: Bone Mineral Density (BMD) measurements of lumbar spine and bilateral hips were obtained. COMPARISON: Comparison is made with prior study dated 04/12/2013. FINDINGS: Lumbar Spine (L1-L4): g/cm2 (1.069) / T-score (0.8) / Z-score (3.0) Findings are suggestive of normal bone density with a low fracture risk. Left Femur Total: g/cm2 (0.975) / T-score (0.3) / Z-score (2.0) Left Femoral Neck: g/cm2 (0.8 x 7) / T-score (0.1) / Z-score (2.1) Right Femur Total: g/cm2 (0.915) / T-score (-0.2) / Z-score (1.5) Right Femoral Neck: g/cm2 (0.825) / T-score (-0.2) / Z-score (1.8) The T-Scores on the most recent prior examination were: Lumbar Spine (L1-L4): There has been worsening of bone density since the previous examination. Left Femur Total: which represents a worsening of 3.3%. Right Femur Total: which represents a worsening of 6.6%. BD/Dexa Bone Density Study IMPRESSION: The patient is considered normal as outlined below according to World [employer] Organization (WHO) criteria with a low fracture risk. There has been worsening of bone density since the previous examination. Reference Information: The T-score is the number of standard deviations above or below the standard which is normal for young adults at their peak bone mineral density. The World Health Organization (WHO) interprets the T-scores as follows: Above -1 Normal bone density Between -1 and -2.5 Osteopenia Equal to / or below -2.5 Osteoporosis As a practical clinical guideline, osteopenia may be graded as follows: Mild -1 through -1.5 Moderate -1.6 through -2.0 Severe -2.1 through -2.4 The Z-score is the number of standard deviations above or below age-matched controls. A Z-score of less than -1.5 would be considered abnormal. References: 1. NIH Osteoporosis and Related Bone Diseases www osteo.org 2. International Society for Clinical Densitometry www iscd.org 3. National Osteoporosis Foundation www nof.org Electronically Signed: Ramses Heredia MD at 15:29 EDT , Service support ,
== END ==
PROVIDERS: PCP Family Medicine; Visit Provider Internal Medicine Medical Oncology
DX: Z78.0 Asymptomatic menopausal state (principal); Z13.820 Encounter for screening for osteoporosis
CPT/HCPCS: 77080

== ENCOUNTER → 2021-03-04 08:01 | Outpatient (CLI) | payer MEDICARE, OTHER, SELFPAY ==
--- NOTE | 2021-03-04 08:02 | ECHODONC_ITS ---
Reason For Study: DYSPNEA/SOB Procedure This was a 2D Doppler, Color Flow transthoracic echocardiogram. Myocardial strain analysis was performed in this exam to aid in the assessment of cardiac function. Exam performed in department. Left Ventricle Normal LV size. Left ventricular systolic function is normal. The estimated ejection fraction is 55 %. Normal diastology for age. No regional wall motion abnormalities noted. Right Ventricle Normal RV size. Normal systolic function. Atria Normal left atrium. Normal right atrium. Mitral Valve Normal mitral valve. Tricuspid Valve Normal tricuspid valve. Mild (1+) tricuspid valve insufficiency. Aortic Valve Trisinus/trileaflet aortic valve. Pulmonic Valve Normal pulmonic valve. Great Vessels Normal aortic root. The pulmonary artery is normal size. Normal inferior vena cava. Pericardium/Pleural No pericardial effusion. MMode/2D Measurements & Calculations LVIDd: 3.9 cm IVSd: 0.77 cm Ao root diam: 2.7 cm LVIDs: 2.7 cm LVPWd: 0.97 cm RVDd: 2.7 cm FS: 31.4 % LAV(MOD-bp): 46.0 ml LA A4 area: 15.8 cm2 LA dimension(2D): 3.0 cm LAV(MOD-bp) Indexed: 25.7 ml/m2 LAV(MOD-sp2): 42.2 ml LAV(MOD-sp4): 42.1 ml RA A4 area: 14.7 cm2 Time Measurements MV dec time: 0.21 sec Doppler Measurements & Calculations MV E max uri: 76.7 cm/sec Lat Peak E' Uri: 6.6 cm/sec Med Peak E' Uri: 5.9 cm/sec MV A max uri: 72.4 cm/sec E/E' lat: 11.5 E/E' med: 12.9 MV E/A: 1.1 Ao V2 max: 118.8 cm/sec LV V1 max: 81.9 cm/sec PA V2 max: 60.6 cm/sec Ao max P.6 mmHg LV V1 max P.7 mmHg TR max uri: 236.1 cm/sec TR max P.4 mmHg ECHO/ONC Echo Complete Interpretation Summary Normal LV size. Left ventricular systolic function is normal. The estimated ejection fraction is 55 %. Normal diastology for age. The global longitudinal strain is normal. The global longitudinal strain = -22. 3 % (normal). Ordering Physician: Gage Tan Referring Physician: Varghese Hamilton Performed By: Barbara Arellano RDCS, RVT
[2021-03-04 09:38] LABS: AST(SGOT) 18 U/L (15-37); Alanine Aminotransfer ALT/SGPT 21 U/L (13-56); Albumin, Serum 3.7 g/dL (3.2-5.0); Alkaline Phosphatase 42 U/L (45-117); Bilirubin, Direct 0.14 mg/dL (0.00-0.30); Cholesterol 273 mg/dL (200); Globulin 3.7 g/dL (2.2-4.2); High Density Lipoprotein 72 mg/dL; Protein, Total 7.4 g/dL (6.4-8.2); Thyroid Stim Hormone (TSH) 0.24 uIU/mL (0.358-3.74); Triglycerides 130 mg/dL; Very Low Density Lipoprotein 26 mg/dL (5-40)
== END ==
PROVIDERS: PCP Family Medicine; Referring Provider Internal Medicine Cardiovascular Disease; Visit Provider Internal Medicine Cardiovascular Disease
DX: R06.00 Dyspnea, unspecified (principal); C50.312 Malignant neoplasm of lower-inner quadrant of left female breast; E03.9 Hypothyroidism, unspecified; I10 Essential (primary) hypertension; Z17.0 Estrogen receptor positive status [ER+]
CPT/HCPCS: 36415; 80061; 80076; 84443; 93306; 93356

== ENCOUNTER 2021-07-22 07:36 | Outpatient (CLI) | payer MEDICARE, OTHER, SELFPAY ==
[2021-07-22 10:36] LABS: Cholesterol 161 mg/dL (200); High Density Lipoprotein 71 mg/dL; T4 Free Direct 1.37 ng/dL (0.76-1.46); Thyroid Stim Hormone (TSH) 0.16 uIU/mL (0.358-3.74); Triglycerides 76 mg/dL; Very Low Density Lipoprotein 15 mg/dL (5-40)
== END 2021-07-22 23:59 | disposition home or self-care (01) ==
LOC: MTLAB 07:38
PROVIDERS: PCP Family Medicine; Referring Provider Family Medicine; Visit Provider Family Medicine
DX: E78.00 Pure hypercholesterolemia, unspecified (principal); E03.9 Hypothyroidism, unspecified
CPT/HCPCS: 36415; 80061; 84439; 84443

== ENCOUNTER → 2021-10-31 | Outpatient (CLI) | payer MEDICARE, OTHER, SELFPAY ==
--- NOTE | 2021-10-31 13:00 | BI_ITS ---
MAMMOGRAPHY - BILATERAL SCREENING REASON FOR EXAM: Female, 75 years old. Routine annual screening examination. PERTINENT HISTORY: Personal history of breast cancer. Prior left lumpectomy with radiation treatment. Prior left stereotactic breast biopsy. TECHNIQUE: Digital bilateral breast swapnil (3D mammographic acquisition) in the CC and MLO projections. 2-D mediolateral oblique (MLO) and craniocaudad (CC) views of both breasts were obtained. CAD: Full Field Digital Mammography with Computer Added Detection was performed. COMPARISON: Comparison is made with prior examination dated 10/30/2020 and 11/01/2020. FINDINGS: Breast Composition: The breasts are heterogeneously dense, which may obscure small masses. There are no dominant masses or suspicious calcifications. Since prior examination, the patient underwent lumpectomy in the deep central aspect of the left breast with resultant postoperative scarring. The previously seen nodular density in the deep inferior medial aspect of the left breast is not seen at this time. A tissue clip marker is seen in the deep upper outer aspect of the left breast. No other significant abnormalities are identified. BI/SCRN MAMM (CAD)W/SWAPNIL BILAT IMPRESSION: Status post left lumpectomy with the resection of the nodular density in the left breast as described. Postsurgical scarring is seen. Yearly follow-up mammogram recommended. (A) ASSESSMENT CATEGORY: BIRADS Category 2: Benign. A letter regarding these results will be sent to the patient by the facility within 30 days. Approximately 10% of breast cancers are not detected by mammography. A normal mammogram should not delay biopsy of a clinically suspicious abnormality. [id number] Electronically Signed: Ramses Heredia MD at 13:55 EDT ,
== END | disposition home or self-care (01) ==
LOC: OPBI 12:59
PROVIDERS: PCP Family Medicine; Visit Provider Surgery
DX: Z12.31 Encounter for screening mammogram for malignant neoplasm of breast (principal)
CPT/HCPCS: 77063; 77067

== ENCOUNTER → 2021-11-11 | Outpatient (CLI) | payer MEDICARE, OTHER, SELFPAY ==
--- NOTE | 2021-11-11 15:40 | VDLE_ITS ---
Reason For Study: Swelling RIGHT LEFT GSV is normal. GSV is normal. CFV is compressible, spontaneous, phasic, CFV is compressible, spontaneous, phasic, competent and demonstrates normal competent, and demonstrates normal augmentation. augmentation. FV is compressible, spontaneous, phasic, FV is compressible, spontaneous, phasic, competent and demonstrates normal competent and demonstrates normal augmentation. augmentation. POP V is compressible, spontaneous, phasic, POP V is compressible, spontaneous, phasic, competent and demonstrates normal competent and demonstrates normal augmentation. augmentation. T/P Trunk is compressible. T/P Trunk is compressible. PTV is compressible. PTV is compressible. RT PerV is compressible. LT PerV is compressible. Procedure This is a venous duplex using B-mode, color flow and spectral Doppler. Exam performed in department. A preliminary report was called and/or faxed to [facility]. VL/Venous Duplex US - Jonny Extrem Interpretation Summary No evidence for acute deep venous thrombosis bilateral lower extremities with p atent and compressible bilateral great saphenous veins. Ordering Physician: Alexandre Haro Referring Physician: Varghese Hamilton Performed By: Katelynn Alvarado RVT
== END | disposition home or self-care (01) ==
PROVIDERS: PCP Family Medicine; Visit Provider Internal Medicine Medical Oncology
DX: R60.0 Localized edema (principal)
CPT/HCPCS: 36415; 80053; 83615; 85025; 93970

== ENCOUNTER → 2022-08-29 | Outpatient (CLI) | payer MEDICARE, OTHER, SELFPAY ==
--- NOTE | 2022-08-29 12:25 | STRESSREP_ITS ---
Stress Test Report Exercise myocardial perfusion stress test. 76-year-old lady with a history of dyspnea on exertion Stress protocol: Resting EKG demonstrates normal sinus rhythm with a rate of 86 bpm, and T wave inversion noted in lead III and aVF and resting blood pressure is 128/68 mmHg. The patient exercised according to the regular Mil protocol for a total duration of 5 minutes attaining a maximum heart rate of 133 bpm which was 91% of maximum predicted heart rate; the maximum workload was 7 metabolic equivalents. At rest there were no T wave changes noted to suggest ischemia but were nonspecific and at peak exercise upsloping ST changes only were noted which did not meet the criteria for ischemia. No clinical angina was noted the test was t erminated due to the target heart rate being achieved/fatigue. The peak blood pressure was 174/68 mmHg. Rate-pressure product was 23,100. Myocardial perfusion protocol. 12.0 mCi of technetium 99m sestamibi was injected at rest. The patient exercised according to regular Mil protocol for total duration of 5 minutes and at peak exercise 34.3 mCi of technetium 99m sestamibi was injected stress images were obtained stress and rest images were reconstructed in comparing the short axis vertical long and horizontal long axis. Gated images were also obtained. Perfusion SPECT analysis: Review of the stress images demonstrate normal uptake of tracer noted in all areas of the myocardium. The resting images similarly demonstrate normal uptake of tracer noted in all areas of the myocardium. No areas of reversibility are noted to suggest ischemia no previous infarct was noted. Gated SPECT analysis: The gated ejection fraction is 77%. Conclusion: Normal exercise myocardial perfusion stress test at a moderate workload Preserved ejection fraction.
== END | disposition home or self-care (01) ==
LOC: CVS 07:07
PROVIDERS: PCP Family Medicine; Visit Provider Internal Medicine Cardiovascular Disease
DX: R06.00 Dyspnea, unspecified (principal)
CPT/HCPCS: 78452; 93017; A9500; A4216

== ENCOUNTER → 2022-11-03 | Outpatient (CLI) | payer MEDICARE, OTHER, SELFPAY ==
--- NOTE | 2022-11-03 12:59 | BI_ITS ---
MAMMOGRAPHY - BILATERAL SCREENING REASON FOR EXAM: Female, 76 years old. Routine annual screening examination. PERTINENT HISTORY: Personal history of breast cancer. Prior left lumpectomy and radiation treatment. TECHNIQUE: Digital bilateral breast swapnil (3D mammographic acquisition) in the CC and MLO projections. 2-D mediolateral oblique (MLO) and craniocaudad (CC) views of both breasts were obtained. CAD: Full Field Digital Mammography with Computer Added Detection was performed. COMPARISON: Comparison is made with prior study dated October 31, 2021 and December 17, 2020. FINDINGS: Breast Composition: The breasts are heterogeneously dense, which may obscure small masses. 7.8 mm x 1.2 cm well-defined nodule in the deep central medial aspect of the left breast. Once again, the patient is status post lumpectomy in the deep central aspect of the left breast with resultant postoperative changes. There has been no change. Surgical clips are seen in the left axilla. No other significant abnormalities are identified. There has been no significant change since the prior study. BI/SCRN MAMM (CAD)W/SWAPNIL BILAT IMPRESSION: Stable bilateral screening mammogram. Yearly follow-up mammogram recommended. (A) ASSESSMENT CATEGORY: BIRADS Category 2: Benign. A letter regarding these results will be sent to the patient by the facility within 30 days. Approximately 10% of breast cancers are not detected by mammography. A normal mammogram should not delay biopsy of a clinically suspicious abnormality. [id number] Electronically Signed: Ramses Heredia MD at 13:49 EDT ,
== END | disposition home or self-care (01) ==
LOC: OPBI 12:58
PROVIDERS: PCP Family Medicine; Referring Provider Surgery; Visit Provider Surgery
DX: Z12.31 Encounter for screening mammogram for malignant neoplasm of breast (principal); Z85.3 Personal history of malignant neoplasm of breast
CPT/HCPCS: 77063; 77067

== ENCOUNTER → 2022-12-25 | Outpatient (CLI) | payer MEDICARE, OTHER, SELFPAY ==
[2022-12-25 07:34] LABS: Bacteria 0 SEEN /hpf (None Seen); Mucous, Urine 0 SEEN /hpf (<or=2+); Red Blood Cells-Urine 0 SEEN /hpf (0-5); White Blood Cells 0 SEEN /hpf (0-5)
[2022-12-25 10:09] LABS: Absolute Lymphocyte Count 1.56 X10^3/uL (0.83-4.51); Absolute Neutrophil Count 2.2 X10^3/uL (2.0-7.7); Basophil# 0.02 X10^3/uL; Basophil% 0.5 % (0-1); Eosinophil# 0.09 X10^3/uL; Eosinophils% 2.2 % (0-5); Hematocrit 43.4 % (37-47); Hemoglobin 14.5 g/dL (12.0-15.0); Lymphocyte # 1.56 X10^3/ul (0.83-4.51); Lymphocyte % 37.6 % (19-41); Mean Corp Hgb Conc 33.4 g/dL (32-36); Mean Corpuscular Hgb 33.3 pg (27.0-32.0); Mean Corpuscular Volume 99.8 fL (81-99); Mean Platelet Vol. 10.9 fl (6.2-12.0); Monocyte# 0.32 X10^3/uL; Monocyte% 7.7 % (0-10); NRBC Flagged by Analyzer 0 % (0-5); Neutrophil # 2.15 X10^3/uL (2.7-7.7); Neutrophil % 51.8 % (47-70); Platelet Count 101 K/mm3 (150-450); RBC Distribution Width CV 12.4 % (11.6-14.6); Red Blood Count 4.35 M/mm3 (4.2-5.4); White Blood Count 4.2 K/mm3 (4.4-11.0)
[2022-12-25 10:35] LABS: Color, Urine Yellow (Yellow); Glucose, Dipstick Normal (Normal); Ketone-Dipstick Negative (Negative); Urine Bilirubin Dipstick Negative (Negative); Urine Clarity Clear (Clear)
[2022-12-25 10:36] LABS: Leukocyte Esterase-Dipstick 25 /ul (Negative); Nitrite-Dipstick Negative (Negative); Occult Blood-Urine 10 /ul (Negative); Protein-Dipstick Negative (Negative); Urine Urobilinogen Normal (Normal)
[2022-12-25 11:08] LABS: Squamous Epithelial Cells - UA 0-5 SEEN /hpf (5-10)
[2022-12-25 11:14] LABS: AST(SGOT) 21 U/L (15-37); Alanine Aminotransfer ALT/SGPT 27 U/L (13-56); Albumin, Serum 3.5 g/dL (3.2-5.0); Alkaline Phosphatase 52 U/L (45-117); Anion Gap 4 (5-15); BUN 15 mg/dL (7-18); BUN/Creat Ratio 16.8 RATIO (10-20); Calcium,Total 8.9 mg/dL (8.5-10.1); Chloride 106 mmol/L (98-107); Cholesterol 167 mg/dL (200); Creatinine, Serum 0.89 mg/dL (0.55-1.02); EST Glomerular Filtration Rate 65 mL/min (>60); Est Glom Filt Rate - Afr Amer 79 mL/min (>60); Globulin 3.4 g/dL (2.2-4.2); Glucose 97 mg/dL (74-106); High Density Lipoprotein 76 mg/dL; Potassium 3.9 mmol/L (3.5-5.1); Protein, Total 6.9 g/dL (6.4-8.2); Sodium Level 140 mmol/L (136-145); T4 Free Direct 1.36 ng/dL (0.76-1.46); Thyroid Stim Hormone (TSH) 0.06 uIU/mL (0.358-3.74); Triglycerides 93 mg/dL; Very Low Density Lipoprotein 19 mg/dL (5-40)
== END | disposition home or self-care (01) ==
LOC: MTLAB 07:27
PROVIDERS: PCP Family Medicine; Visit Provider Family Medicine
DX: I10 Essential (primary) hypertension (principal); E03.9 Hypothyroidism, unspecified
CPT/HCPCS: 36415; 80053; 80061; 81001; 84439; 84443; 85025

== ENCOUNTER → 2023-07-10 | Outpatient (CLI) | payer MEDICARE, OTHER, SELFPAY ==
[2023-07-10 17:29] LABS: Absolute Lymphocyte Count 1.73 X10^3/uL (0.83-4.51); Absolute Neutrophil Count 2.9 X10^3/uL (2.0-7.7); Basophil# 0.03 X10^3/uL; Basophil% 0.6 % (0-1); Eosinophil# 0.14 X10^3/uL; Eosinophils% 2.6 % (0-5); Hematocrit 44.3 % (37-47); Hemoglobin 14.6 g/dL (12.0-15.0); Lymphocyte # 1.73 X10^3/ul (0.83-4.51); Lymphocyte % 32.6 % (19-41); Mean Corpuscular Volume 100.2 fL (81-99); Mean Platelet Vol. 9.9 fl (6.2-12.0); Monocyte# 0.46 X10^3/uL; Monocyte% 8.7 % (0-10); NRBC Flagged by Analyzer 0 % (0-5); Neutrophil # 2.91 X10^3/uL (2.7-7.7); Neutrophil % 54.9 % (47-70); Platelet Count 169 K/mm3 (150-450); RBC Distribution Width SD 48.3 fl (35.1-43.9); Red Blood Count 4.42 M/mm3 (4.2-5.4); White Blood Count 5.3 K/mm3 (4.4-11.0)
[2023-07-10 18:47] LABS: ALB/GLOB Ratio 0.9 RATIO (0.9-2.4); AST(SGOT) 24 U/L (15-37); Alanine Aminotransfer ALT/SGPT 36 U/L (13-56); Albumin, Serum 3.7 g/dL (3.2-5.0); Alkaline Phosphatase 57 U/L (45-117); Anion Gap 3 (5-15); BUN 15 mg/dL (7-18); Calcium,Total 9.4 mg/dL (8.5-10.1); Chloride 107 mmol/L (98-107); Cholesterol 194 mg/dL (200); Creatinine, Serum 0.88 mg/dL (0.55-1.02); EST Glomerular Filtration Rate 66 mL/min (>60); Est Glom Filt Rate - Afr Amer 80 mL/min (>60); Globulin 3.9 g/dL (2.2-4.2); Glucose 107 mg/dL (74-106); High Density Lipoprotein 88 mg/dL; Magnesium 2.7 mg/dL (1.6-2.6); Protein, Total 7.6 g/dL (6.4-8.2); Sodium Level 140 mmol/L (136-145); Thyroid Stim Hormone (TSH) 1.39 uIU/mL (0.358-3.74); Triglycerides 87 mg/dL; Very Low Density Lipoprotein 17 mg/dL (5-40)
[2023-07-14 12:19] LABS: Hemoglobin A1c 5.4 % (3.8-5.6)
== END | disposition home or self-care (01) ==
LOC: MFPLAB 16:49
PROVIDERS: PCP Family Medicine; Visit Provider Family Medicine
DX: R73.9 Hyperglycemia, unspecified (principal); I10 Essential (primary) hypertension
CPT/HCPCS: 36415; 80053; 80061; 83036; 83735; 84443; 85025

== ENCOUNTER → 2023-11-05 | Outpatient (CLI) | payer MEDICARE, OTHER, SELFPAY ==
--- NOTE | 2023-11-05 11:54 | BI_ITS ---
MAMMOGRAPHY - BILATERAL SCREENING REASON FOR EXAM: Female, 77 years old. Routine annual screening examination. PERTINENT HISTORY: Personal history of breast cancer. Prior left lumpectomy with radiation treatment. TECHNIQUE: Digital bilateral breast swanpil (3D mammographic acquisition) in the CC and MLO projections. 2-D mediolateral oblique (MLO) and craniocaudad (CC) views of both breasts were obtained. CAD: Full Field Digital Mammography with Computer Added Detection was performed. COMPARISON: Comparison is made with prior study November 03, 2022 and October 31, 2021. FINDINGS: Breast Composition: The breasts are heterogeneously dense, which may obscure small masses. There are no dominant masses or suspicious calcifications. Stable 0.8 cm x 1 cm nodule in the deep central medial aspect of the left breast. Stable postoperative scarring in the deep central aspect of the left breast. Surgical clips are seen in the left axilla. No other significant abnormalities are identified. There has been no significant change since the prior study. BI/SCRN MAMM (CAD)W/SWAPNIL BILAT IMPRESSION: Stable bilateral screening mammogram. Yearly follow-up mammogram recommended. (A) ASSESSMENT CATEGORY: BIRADS Category 2: Benign. A letter regarding these results will be sent to the patient by the facility within 30 days. Approximately 10% of breast cancers are not detected by mammography. A normal mammogram should not delay biopsy of a clinically suspicious abnormality. [id number] Electronically Signed: Ramses Heredia MD at 8:27 EDT ,
== END | disposition home or self-care (01) ==
LOC: OPBI 11:54
PROVIDERS: PCP Family Medicine; Referring Provider Surgery; Visit Provider Surgery
DX: Z12.31 Encounter for screening mammogram for malignant neoplasm of breast (principal); Z80.3 Family history of malignant neoplasm of breast; Z92.3 Personal history of irradiation
CPT/HCPCS: 77063; 77067

== ENCOUNTER → 2024-01-08 | Outpatient (CLI) | payer MEDICARE, OTHER, SELFPAY | END | disposition home or self-care (01) | PROVIDERS: PCP Family Medicine; Referring Provider Internal Medicine Medical Oncology; Visit Provider Internal Medicine Medical Oncology | DX: C50.312 Malignant neoplasm of lower-inner quadrant of left female breast (principal); Z17.0 Estrogen receptor positive status [ER+] ==

== ENCOUNTER → 2024-02-15 | Outpatient (CLI) | payer MEDICARE, OTHER, SELFPAY ==
[2024-02-15 14:05] LABS: Bacteria 0 SEEN /hpf (None Seen); Mucous, Urine 0 SEEN /hpf (<or=2+); Red Blood Cells-Urine 0 SEEN /hpf (0-5); White Blood Cells 0 SEEN /hpf (0-5)
[2024-02-15 14:09] LABS: Absolute Lymphocyte Count 1.53 X10^3/uL (0.83-4.51); Absolute Neutrophil Count 4.3 X10^3/uL (2.0-7.7); Basophil# 0.04 X10^3/uL; Basophil% 0.6 % (0-1); Eosinophil# 0.07 X10^3/uL; Eosinophils% 1.1 % (0-5); Hematocrit 41.4 % (37-47); Hemoglobin 13.8 g/dL (12.0-15.0); Lymphocyte # 1.53 X10^3/ul (0.83-4.51); Lymphocyte % 23.5 % (19-41); Mean Corp Hgb Conc 33.3 g/dL (32-36); Mean Corpuscular Hgb 33.3 pg (27.0-32.0); Mean Corpuscular Volume 99.8 fL (81-99); Monocyte% 7.7 % (0-10); NRBC Flagged by Analyzer 0 % (0-5); Neutrophil # 4.33 X10^3/uL (2.7-7.7); Neutrophil % 66.6 % (47-70); Platelet Count 173 K/mm3 (150-450); RBC Distribution Width CV 12.6 % (11.6-14.6); RBC Distribution Width SD 46.1 fl (35.1-43.9); Red Blood Count 4.15 M/mm3 (4.2-5.4); White Blood Count 6.5 K/mm3 (4.4-11.0)
[2024-02-15 14:10] LABS: Color, Urine Yellow (Yellow); Glucose, Dipstick Normal (Normal); Ketone-Dipstick Negative (Negative); Leukocyte Esterase-Dipstick Negative /ul (Negative); Nitrite-Dipstick Negative (Negative); Occult Blood-Urine Negative /ul (Negative); Protein-Dipstick Negative (Negative); Urine Bilirubin Dipstick Negative (Negative); Urine Clarity Sl. Cloudy (Clear); Urine Urobilinogen Normal (Normal)
[2024-02-15 14:21] LABS: Squamous Epithelial Cells - UA 0-5 SEEN /hpf (5-10)
[2024-02-15 14:31] LABS: AST(SGOT) 16 U/L (15-37); Alanine Aminotransfer ALT/SGPT 23 U/L (13-56); Albumin, Serum 3.5 g/dL (3.2-5.0); Alkaline Phosphatase 43 U/L (45-117); Anion Gap 8 (5-15); BUN 12 mg/dL (7-18); BUN/Creat Ratio 12.1 RATIO (10-20); Calcium,Total 9.3 mg/dL (8.5-10.1); Chloride 99 mmol/L (98-107); Creatinine, Serum 0.99 mg/dL (0.55-1.02); EST Glomerular Filtration Rate 58 mL/min (>60); Est Glom Filt Rate - Afr Amer 70 mL/min (>60); Globulin 3.6 g/dL (2.2-4.2); Glucose 112 mg/dL (74-106); Protein, Total 7.1 g/dL (6.4-8.2); Sodium Level 135 mmol/L (136-145); T4 Free Direct 1.21 ng/dL (0.76-1.46)
[2024-02-16 14:45] LABS: Hemoglobin A1c 5.2 % (3.8-5.6)
== END | disposition home or self-care (01) ==
LOC: PAVLAB 13:46
PROVIDERS: PCP Family Medicine; Referring Provider Family Medicine; Visit Provider Family Medicine
DX: R73.09 Other abnormal glucose (principal); R94.4 Abnormal results of kidney function studies; I10 Essential (primary) hypertension; E03.9 Hypothyroidism, unspecified
CPT/HCPCS: 36415; 80053; 81001; 83036; 84439; 84443; 85025

== ENCOUNTER → 2024-02-24 | Outpatient (CLI) | payer MEDICARE, OTHER, SELFPAY ==
[2024-02-24 09:14] LABS: Cholesterol 189 mg/dL (200); High Density Lipoprotein 104 mg/dL; Triglycerides 79 mg/dL; Very Low Density Lipoprotein 16 mg/dL (5-40)
== END | disposition home or self-care (01) ==
LOC: PAVLAB 08:25
PROVIDERS: PCP Family Medicine; Referring Provider Family Medicine; Visit Provider Family Medicine
DX: E78.00 Pure hypercholesterolemia, unspecified (principal); I10 Essential (primary) hypertension
CPT/HCPCS: 36415; 80061

== ENCOUNTER → 2024-11-07 | Outpatient (CLI) | payer MEDICARE, OTHER, SELFPAY ==
--- NOTE | 2024-11-07 10:58 | BI_ITS ---
EXAM: SCRN MAMM (CAD)W/SWAPNIL BILAT DATE: 11/07/2024 CLINICAL HISTORY: F, Age 78 y/o , SCREENING Personal history of left breast cancer with left lumpectomy and radiation treatment. BREAST CANCER RISK ASSESSMENT: Not assessed. TECHNIQUE: Bilateral screening digital breast tomosynthesis with 2D and 3D images. Computer aided detection. COMPARISON: Prior exam(s) dated November 05, 2023.. FINDINGS: TISSUE DENSITY: The breast tissue is composed of scattered area of fibroglandular density. Bilateral Breast Mammographic Findings: No significant masses, calcifications or other abnormalities are identified. Densely calcified 1 cm nodule in the deep central slightly upper aspect of the left breast in keeping with the calcified fibroadenoma. Postsurgical scarring is seen in the deep central portion of the left breast in keeping with prior lumpectomy. Surgical clips are also seen in the left axilla. BI/SCRN MAMM (CAD)W/SWAPNIL BILAT IMPRESSION: OVERALL FINAL ASSESSMENT: BIRADS 2 BENIGN FINDING RECOMMENDATION: Routine annual follow-up in 1 Year A letter with findings and recommendations will be mailed to the patient. Reading Location: [place] [id number]
== END | disposition home or self-care (01) ==
LOC: OPBI 10:58
PROVIDERS: PCP Family Medicine; Referring Provider Student in an Organized Health Care Education/Training Program; Visit Provider Student in an Organized Health Care Education/Training Program
DX: Z12.31 Encounter for screening mammogram for malignant neoplasm of breast (principal); Z85.3 Personal history of malignant neoplasm of breast; Z92.3 Personal history of irradiation
CPT/HCPCS: 77063; 77067